=== PATIENT | female | born 1995 | race Caucasian/White ===

== ENCOUNTER 2018-02-03 09:00 | Emergency (ER) | payer MEDICAID, OTHER ==
[~2018-02-03] VITALS: Ht 157.5 cm; Wt 73.5 kg
[2018-02-03] MEDS ORDERED: NS IV 1000 ML 1,000 ML IV STA (09:19)
[2018-02-03] MEDS ORDERED: fentaNYL INJECTION 100 MCG/2 ML AMP IVP STA (09:19)
[2018-02-03] MEDS ORDERED: FAMOTIDINE 20MG/2ML IV (PEPCID) IV STA (09:19)
[2018-02-03 09:26] LABS: BASOPHILS % (AUTO) 0 % (0-10); EOSINOPHILS # (AUTO) 0.1 10^3/uL (0.0-0.3); EOSINOPHILS % (AUTO) 1 % (0-10); HEMATOCRIT 38 % (35-52); HEMOGLOBIN 13.1 G/DL (11.5-16.0); LYMPHOCYTES # (AUTO) 1.8 X 10^3 (1.0-4.0); LYMPHOCYTES % (AUTO) 23 % (12-44); MEAN CORPUSCULAR HEMOGLOBIN 31 PG (25-34); MEAN CORPUSCULAR HGB CONC 34 G/DL (32-36); MEAN CORPUSCULAR VOLUME 89 FL (80-99); MEAN PLATELET VOLUME 11.6 FL (7.4-10.4); MONOCYTES # (AUTO) 0.6 X 10^3 (0.0-1.0); MONOCYTES % (AUTO) 8 % (0-12); NEUTROPHILS # (AUTO) 5.2 X 10^3 (1.8-7.8); NEUTROPHILS % (AUTO) 68 % (42-75); PLATELET COUNT 254 10^3/uL (130-400); RED BLOOD COUNT 4.29 10^6/uL (4.35-5.85); RED CELL DISTRIBUTION WIDTH 13.4 % (10.0-14.5); WHITE BLOOD COUNT 7.6 10^3/uL (4.3-11.0)
[2018-02-03] MEDS ORDERED: ONDANSETRON 4 MG/2 ML (SDV) Z0FRAN IVP ONE (09:30)
[2018-02-03] MEDS ORDERED: NORG1TAB15 (09:33)
[2018-02-03 09:46] LABS: ALANINE AMINOTRANSFERASE 26 U/L (0-55); ALBUMIN 4.3 GM/DL (3.2-4.5); ALKALINE PHOSPHATASE 90 U/L (40-136); BILIRUBIN,TOTAL 0.4 MG/DL (0.1-1.0); BUN/CREATININE RATIO 15; CARBON DIOXIDE 15 MMOL/L (21-32); CHLORIDE 110 MMOL/L (98-107); CREATININE SERUM 0.73 MG/DL (0.60-1.30); GFR ESTIMATED > 60; GLUCOSE 93 MG/DL (70-105); LIPASE 17 U/L (8-78); POTASSIUM 4.5 MMOL/L (3.6-5.0); SODIUM 140 MMOL/L (135-145); TOTAL PROTEIN 7.8 GM/DL (6.4-8.2)
--- NOTE | 2018-02-03 10:11 | ED Abdominal Pain ---
General Chief Complaint: Abdominal/GI Problems Stated Complaint: ABD PAIN Nursing Triage Note: pt present to ed with complaints of abdominal pain x several months. Durring with her now 3 month old son pt was told she had a sluggish gallbladder. pt reports the pain got significantly worse today. pt reports nausea but no vomiting and medial abdominal/epigastric pain that raps around both side and to her back. Sepsis Screen: No Definite Risk Source of Information: Patient Exam Limitations: No Limitations History of Present Illness Date Seen by Provider: Feb 03, 2018 Time Seen by Provider: 09:12 Initial Comments Here with report of central and right upper quadrant abdominal pain that radiates to her back. She gets pain there frequently and was told that she had a poorly functioning gallbladder. She had onset of symptoms during . Her son is now 3 months old. She has not had further workup as of yet. Usually she can get the pain to go away by taking a hot shower. That did not work this morning. Denies vomiting but does have nausea. She did take ibuprofen 800 mg at 7 a.m. and that did not help. Onset of pain at 4 a.m. and took a shower at 5 a.m. and pain medicine at 7 a.m. She is not currently breast -feeding. Timing/Duration: Intermittent, Other (9 or 10 months) Severity/Quality: Moderate Location: RUQ, Epigastric Radiation: Back Modifying Factors: Improves With Analgesics, Improves With Resting Associated Symptoms: No Back Pain, No Chest Pain, No Fever/Chills; Nausea/ Vomiting; No Shortness of Air, No Weakness Allergies and Home Medications Allergies Coded Allergies: No Known Drug Allergies (Unverified , 02/03/18) Patient Home Medication List Home Medication List Reviewed: Yes Review of Systems Review of Systems Constitutional: see HPI; No chills, No fever EENTM: No Symptoms Reported Respiratory: Denies Cough, Denies Shortness of Air, Denies SOA at Rest Cardiovascular: Denies Chest Pain, Denies Edema Gastrointestinal: Abdominal Pain; Denies Diarrhea; Nausea; Denies Vomiting Genitourinary: No Symptoms Reported Musculoskeletal: no symptoms reported Skin: no symptoms reported All Other Systems Reviewed Negative Unless Noted: Yes Past Ntmlbeb-Dgfpzn-Irlvaq Hx Past Med/Social Hx: Reviewed Nursing Past Med/Soc Hx Patient Social History Alcohol Use: Denies Use Recreational Drug Use: No Smoking Status: Never a Smoker Recent Foreign Travel: No Contact w/Someone Who Travel: No Recent Infectious Disease Expo: No Recent Hopitalizations: No Physical Abuse: No Sexual Abuse: No Mistreated: No Fear: No Seasonal Allergies Seasonal Allergies: No Past Medical History Surgeries: Yes (breast biopsy) Respiratory: No Cardiac: No Neurological: No Hx : 1 Hx Para: 1 Genitourinary: No Gastrointestinal: Yes Gall Bladder Disease Musculoskeletal: No Endocrine: No HEENT: No Cancer: No Psychosocial: No Blood Disorders: No Family Medical History Reviewed Nursing Family Hx No Pertinent Family Hx Physical Exam Vital Signs Vital Signs - First Documented 02/03/18 09:21 Temp 97.4 Pulse 74 Resp 18 B/P (MAP) 158/100 (119) Pulse Ox 100 Capillary Refill : Less Than 3 Seconds Height/Weight/BMI Height: 5'2.00" Weight: 162lbs. oz. [id number]; BMI Method:Stated General Appearance: WD/WN, no apparent distress HEENT: PERRL/EOMI, pharynx normal Neck: full range of motion, supple Respiratory: lungs clear, normal breath sounds Cardiovascular: regular rate, rhythm, no murmur Gastrointestinal: normal bowel sounds, soft; No guarding, No rebound; tenderness (of epigastric and right upper quadrant) Extremities: non-tender, normal inspection Back: normal inspection, no CVA tenderness, no vertebral tenderness Neurologic/Psychiatric: alert, oriented x 3 Skin: normal color, warm/dry Progress/Results/Core Measures Results/Orders Lab Results Laboratory Tests Test 02/03/18 09:18 Range/Units White Blood Count 7.6 4.3-11.0 10^3/uL Red Blood Count 4.29 L 4.35-5.85 10^6/uL Hemoglobin 13.1 11.5-16.0 G/DL Hematocrit 38 35-52 % Mean Corpuscular Volume 89 80-99 FL Mean Corpuscular Hemoglobin 31 25-34 PG Mean Corpuscular Hemoglobin Concent 34 32-36 G/DL Red Cell Distribution Width 13.4 10.0-14.5 % Platelet Count 254 130-400 10^3/uL Mean Platelet Volume 11.6 H 7.4-10.4 FL Neutrophils (%) (Auto) 68 42-75 % Lymphocytes (%) (Auto) 23 12-44 % Monocytes (%) (Auto) 8 0-12 % Eosinophils (%) (Auto) 1 0-10 % Basophils (%) (Auto) 0 0-10 % Neutrophils # (Auto) 5.2 1.8-7.8 X 10^3 Lymphocytes # (Auto) 1.8 1.0-4.0 X 10^3 Monocytes # (Auto) 0.6 0.0-1.0 X 10^3 Eosinophils # (Auto) 0.1 0.0-0.3 10^3/uL Basophils # (Auto) 0.0 0.0-0.1 10^3/uL Sodium Level 140 135-145 MMOL/L Potassium Level 4.5 3.6-5.0 MMOL/L Chloride Level 110 H 98-107 MMOL/L Carbon Dioxide Level 15 L 21-32 MMOL/L Anion Gap 15 H 5-14 MMOL/L Blood Urea Nitrogen 11 7-18 MG/DL Creatinine 0.73 0.60-1.30 MG/DL Estimat Glomerular Filtration Rate > 60 BUN/Creatinine Ratio 15 Glucose Level 93 70-105 MG/DL Calcium Level 9.0 8.5-10.1 MG/DL Corrected Calcium 8.8 8.5-10.1 MG/DL Total Bilirubin 0.4 0.1-1.0 MG/DL Aspartate Amino Transf (AST/SGOT) 29 5-34 U/L Alanine Aminotransferase (ALT/SGPT) 26 0-55 U/L Alkaline Phosphatase 90 40-136 U/L Total Protein 7.8 6.4-8.2 GM/DL Albumin 4.3 3.2-4.5 GM/DL Lipase 17 8-78 U/L Serum Test, Qualitative NEGATIVE NEGATIVE My Orders Orders - GATO OAKES MD Cbc With Automated Diff (02/03/18 09:19) Comprehensive Metabolic Panel (02/03/18 09:19) Lipase (02/03/18 09:19) Ondansetron Injection (Zofran Injectio (02/03/18 09:30) Ns Iv 1000 Ml (Sodium Chloride 0.9%) (02/03/18 09:19) Famotidine Injection (Pepcid Injection) (02/03/18 09:19) Saline Lock/Iv-Start (02/03/18 09:19) Fentanyl Injection (Sublimaze Injection (02/03/18 09:19) Hcg,Qualitative Serum (02/03/18 09:20) Medications Given in ED Current Medications Medications Dose Ordered Sig/Breanna Route Start Time Stop Time Status Last Admin Dose Admin Ondansetron HCl 4 mg ONCE ONCE IVP 02/03/18 09:30 02/03/18 09:31 DC 02/03/18 09:37 4 MG Vital Signs/I&O 02/03/18 09:21 Temp 97.4 Pulse 74 Resp 18 B/P (MAP) 158/100 (119) Pulse Ox 100 Blood Pressure Mean: 119 Progress Progress Note : Progress Note Seen and evaluated. IV, labs, normal saline 1 L bolus, Zofran 4 mg IV, Pepcid 20 mg IV and fentanyl 50 g IV. Monitor patient. 1005: No acute findings on laboratory data. I will discuss with surgeon about outpatient follow-up and continuation of evaluation. Discharged home with return precautions. Patient verbalize understanding instructions and agreement with plan. Departure Impression Primary Impression: Right upper quadrant abdominal pain Disposition: HOME, SELF-CARE Condition: Stable Departure-Patient Inst. Decision time for Depature: 10:11 Referrals: SRIDEVI BOSWELL,LOCAL PHYSICIAN (PCP) Primary Care Physician Patient Instructions: Acute Abdomen (Belly Pain), Adult (DC), POSS GALLSTONE-W/ BILIARY COLIC Add. Discharge Instructions: All discharge instructions reviewed with patient and/or family. Voiced understanding. Avoid fats in your diet. Drink plenty of fluids. Follow-up with Dr. Boswell for recheck and further evaluation. Call his office at 8 a.m. on Sunday for appointment that day. Return for worse pain, fever, vomiting, weakness, breathing problems or other concerns as needed. You may take ibuprofen 800 mg every 8 hours as needed for pain. You may take Tylenol/acetaminophen 1000 mg every 8 hours as needed for pain. Copy Copies To 1: SRIDEVI BOSWELL TIMOTHY D MD Feb 03, 2018 10:11
[2018-02-03 10:29] VITALS: BP 126/85
[2018-02-07] MEDS ORDERED: ACHD5005 PO (10:52)
== END 2018-02-03 10:29 | disposition home or self-care (01) ==
LOC: ER 09:03
DX: R10.11 Right upper quadrant pain (principal)
CPT/HCPCS: 36415; 80053; 83690; 84703; 85025

== ENCOUNTER 2018-02-06 13:40 | Outpatient (CLI) | payer MEDICAID ==
[~2018-02-06] VITALS: Ht 157.5 cm; Wt 73.5 kg
[~2018-02-06 13:40] MED LIST: NORG1TAB15
[2018-02-07] MEDS ORDERED: ACHD5005 PO (10:52)
== END 2018-02-06 15:08 | disposition home or self-care (01) ==
LOC: PREOP 13:40
PROVIDERS: ATTEND Surgery
DX: Z01.818 Encounter for other preprocedural examination (principal)

== ENCOUNTER 2018-02-07 08:15 | Day surgery (SDC) | payer MEDICAID ==
[~2018-02-07] VITALS: Ht 157.5 cm; Wt 73.5 kg
[2018-02-07] MEDS ORDERED: fentaNYL INJECTION 100 MCG/2 ML AMP ONE (08:33)
[2018-02-07] MEDS ORDERED: MIDAZOLAM 2 MG/2 ML (VERSED) VIAL ONE (08:34)
[2018-02-07 08:45] VITALS: BP 146/92
[2018-02-07] MEDS ORDERED: ceFAZolin 2 GM IV Premixed 50 ML ONE (08:48)
[2018-02-07] MEDS ORDERED: ceFAZolin 2 GM IV Premixed 50 ML IV ONE (09:00)
[2018-02-07] MEDS: LACTATED RINGERS 1,000 ML IV PRN ×2 (09:04→10:30)
[2018-02-07] MEDS ORDERED: CATHETER FLUSH 10 ML SYR IV PRN (09:30)
[2018-02-07] MEDS ORDERED: LIDOCAINE/EPI 1%-1:100,000 (XYLOCAINE) 20ML ONE (09:34)
[2018-02-07] MEDS ORDERED: LIDOCAINE PF 2% 5 ML (XYLOCAINE) VIAL ONE (10:27)
[2018-02-07] MEDS ORDERED: proPOfol 200 MG/20 ML (DIPRIVAN) VIAL IV ONE (10:27)
[2018-02-07] MEDS ORDERED: DEXAMETHASONE 10 MG/ML (DECADRON) 1 ML VIAL ONE (10:27)
[2018-02-07] MEDS ORDERED: SEVOFLURANE (ULTANE) 15 ML INHAL SOLN ONE ×3 (10:27→10:50)
[2018-02-07] MEDS ORDERED: ONDANSETRON 4 MG/2 ML (SDV) Z0FRAN ONE (10:27)
[2018-02-07] MEDS ORDERED: ROCURONIUM 10 MG/ML 5 ML SYRINGE IV ONE (10:41)
[2018-02-07] MEDS ORDERED: KETOROLAC 30 MG/ML VIAL ONE (10:42)
[2018-02-07] MEDS ORDERED: NEOSTIGMINE 1 MG/ML 5 ML SYRINGE ONE (10:49)
[2018-02-07] MEDS ORDERED: GLYCOPYRROLATE 0.2 MG/ML (ROBINUL) 2 ML VIAL ONE (10:49)
--- NOTE | 2018-02-07 10:51 | Progress Note-Post Operative ---
Post-Operative Progess Note Surgeon (s)/Marketing Secretary (s) Surgeon SRIDEVI PHAM DO Marketing Secretary: none Pre-Operative Diagnosis Chronic Cholecystitis/Cholelithiasis Post-Operative Diagnosis Same Procedure & Operative Findings Date of Procedure 02/07/18 Procedure Performed/Findings Lap Norah with IOC Anesthesia Type GET Estimated Blood Loss Estimated blood loss (mL): less than 5ml Specimens/Packing Specimens Removed GB and contents SRIDEVI PHAM DO Feb 07, 2018 10:51
[2018-02-07] MEDS ORDERED: ACHD5005 PO (10:52)
--- NOTE | 2018-02-07 10:54 | Discharge Inst-Surgical ---
Discharge Inst-Surgical Depart Medication/Instructions New, Converted or Re-Newed RX: RX Given to Pt/Family Patient Instructions Follow up Appt: Make appointment for 1 week. Instructions: No lifting greater than 10 pounds. No strenuous activity. May shower in 24 hours, no tub bath or soaking. Use incentive spirometer at home as directed. No Smoking Skin/Wound Care: May remove bandages in am. You need to leave the Dermabond on over incision it will fall off on its own. Symptoms to Report: Appetite Changes, Extremity Discoloration, Numbness/Tingling, Swelling Increased , Bleeding Excessive, Eyesight Changes, Pain Increased, Urine Color Change, Constipation(Persistent), Fever over 101 degree F, Pain/Pressure in chest, Urinating Difficulty, Cough Up/Vomit Blood, Heart Beat Irreg/Pounding, Pain/ Pressure in jaw, Vaginal Bleeding Increase, Cramps in feet or legs, Lightheadedness, Pain/Pressure in shoulder, Diarrhea(Persistent), Memory Changes Suddenly, Questions/Concerns, Weight gain consecutive days, Dizziness/ Fainting, Nausea/Vomiting, Shortness of Breath, Weight gain over 2 pounds If questions or concerns contact your physician Or seek help at emergency department. Activity Activity Instructions: Avoid Stress to Incision Driving Instructions: No Driving/Refer to Diet Discharge Diet: Avoid Fatty Foods, Low Fat/Low Cholesterol Diet After 24 Hours: Clear Liquid if Nauseous If Any Problems/Questions/Issu: Contact Your Physician Skin/Wound Care Infection Signs and Symptoms: Increased Redness, Foul Odor of Wound, Increased Drainage, Skin Itchy or Has a Rash, Increased Swelling, Temperature Above 101 F Wound Care Comment: heating pad to shoulder and neck tonight for pain Bathing Instructions: Shower Stitches/Mirna/Dermabond Dis: Dermabond Ice Pack: Ice On and Off Site (incisions as needed for pain) SRIDEVI PHAM DO Feb 07, 2018 10:53
[2018-02-07] MEDS ORDERED: morphine INJ 10 MG/ML 1ML (SYR OR VIAL) ONE (11:06)
[2018-02-07] MEDS ORDERED: PROMETHAZINE INJ 25 MG/ML (PHENERGAN) AMP ONE (11:07)
[2018-02-07] MEDS ORDERED: ONDANSETRON 4 MG/2 ML (SDV) Z0FRAN IVP PRN (11:15)
[2018-02-07] MEDS ORDERED: morphine INJ 10 MG/ML 1ML (SYR OR VIAL) IVP ONE (11:15)
[2018-02-07] MEDS ORDERED: PROMETHAZINE INJ 25 MG/ML (PHENERGAN) AMP IVP ONE (11:45)
[2018-02-07 12:05] VITALS: BP 148/102
[2018-02-07] MEDS ORDERED: HYDROcodone/APAP 5 MG/325 MG (LORTAB) TAB ONE (12:10)
[2018-02-07] MEDS ORDERED: HYDROcodone/APAP 5 MG/325 MG (LORTAB) TAB PO ONE (12:30)
[2018-02-07 12:35] VITALS: BP 139/97
[2018-02-07 13:05] VITALS: BP 140/87
--- NOTE | 2018-02-07 14:38 | Anesthesia-General Post-Op ---
General Patient Condition Mental Status/LOC: Same as Preop Cardiovascular: Satisfactory Nausea/Vomiting: Absent Respiratory: Satisfactory Pain: Controlled Complications: Absent Post Op Complications Complications None Follow Up Care/Instructions Patient Instructions None needed. Anesthesia/Patient Condition Patient Condition Patient is doing well, no complaints, stable vital signs, no apparent adverse anesthesia problems. No complications reported per nursing. EMMA MANRIQUE CRNA Feb 07, 2018 14:38
--- NOTE | 2018-02-07 17:09 | Diagnostic Imaging Report ---
INDICATION: Fluoroscopy during intraoperative cholangiogram. FINDINGS: Fluoroscopy was provided in the OR during intraoperative cholangiogram. 9 seconds of fluoroscopy was utilized. Images demonstrate contrast being injected via the cystic duct remnant. Intrahepatic and extrahepatic bile ducts are normal caliber. No filling defects are seen. There is normal flow of contrast into the duodenum. IMPRESSION: Fluoroscopy during intraoperative cholangiogram. Dictated by: Dictated on workstation # [id number]
--- NOTE | 2018-02-08 23:20 | OPERATIVE REPORT ---
DATE OF SERVICE: 02/07/2018 PREOPERATIVE DIAGNOSES: Cholelithiasis, cholecystitis. POSTOPERATIVE DIAGNOSES: Cholelithiasis, cholecystitis. PROCEDURE: Laparoscopic cholecystectomy, intraoperative cholangiogram. SURGEON: Reuben Boswell DO MILK DRIER: None. ANESTHESIA: General endotracheal tube. SPECIMEN: Gallbladder and contents. BLOOD LOSS: Scant. FLUIDS: Per anesthesia. POSTOPERATIVE CONDITION: Stable. INDICATION FOR PROCEDURE: The patient is a 22-year-old female who has been having right upper quadrant pain, had an ultrasound done while she was , which showed sludge in her gallbladder. FINDINGS: The patient had adhesions of the gallbladder. It is usually indicative of previous gallbladder attacks and she also appeared to have some fluid around the gallbladder. PROCEDURE NOTE: After informed consent was obtained, the patient was brought to the operating room, placed on the operating table in supine position. She was sterilely prepped and draped in normal fashion. Local lidocaine was used to infiltrate the skin above the umbilicus. Made incision with #11 blade, carried down through the skin into the subcutaneous tissue, then deepened down through subcutaneous tissue with Bovie electrocautery down the fascia. Fascia incised with Bovie electrocautery. Bluntly entered the abdomen, swept the finger around, placed 0 Vicryl [id number] suture, then placed 11 mm trocar port under direct visualization. Created pneumoperitoneum and then placed 3 more ports in normal fashion using local lidocaine, 11 blade for stab incision and the VersaStep system, all done under direct visualization, one subxiphoid and 2 in the right upper quadrant. The patient was then placed slightly in reverse Trendelenburg and rotated left, able to visualize the gallbladder and grasped at the fundus. There were adhesions of the gallbladder. Pictures of this were taken. There was omentum and duodenum attached stuck up there. This is usually indicative of previous gallbladder attacks. Grasping the gallbladder at the fundus, taken in the superior direction and carefully taken down the adhesions with blunt dissection as well as Bovie electrocautery pushing the omentum out of the way as well as pushing the duodenum gently out of the way, then able to grasp down the Deja's pouch and pulled in inferolateral direction and start dissecting out the cystic duct and cystic artery. Able to get around the cystic duct and the cystic artery, placed 1 clip distally on the cystic duct and one distally and 1 proximal and cystic artery. Cut the cystic duct long-term through Metzenbaum scissors. Placed a cholangiogram catheter and shot a cholangiogram. Good spillage of dye down the cystic duct into the common bile duct and down in the small intestine as well as up into common hepatic and right and left hepatics. Removed the cholangiogram catheter, placed 2 clips proximally on the cystic duct and cut the cystic duct and cystic artery with Metzenbaum scissors. Started taking the gallbladder from the bed of the liver. There was a posterior artery encountered, clipped twice proximally and once distally and cut with Metzenbaum scissors and then continued to take the gallbladder from the bed of liver with L-hook cautery. Once it was completely removed, placed a bag in the abdomen, placed the gallbladder in the bag and then removed this through a supraumbilical incision. Placed the port back into the abdomen, copiously irrigated with normal saline. Took picture of the bed of liver. There was no bleeding and then at this point, placed the patient supine, removed all ports under direct visualization, allowed pneumoperitoneum to escape as well as suctioned out. Closed the supraumbilical incision with 0 Vicryl suture previously placed. Copiously irrigated all incisions with normal saline. I then closed the 3 small 5 mm incision with a single interrupted 4-0 undyed Monocryl subcuticular stitch and closed the supraumbilical incision with 3 interrupted 4-0 undyed Monocryl subcuticular stitches. Area was cleaned and dried and Dermabond was placed as well as bandage. The patient then transferred to recovery room in stable condition. Sponge, instrument and needle count correct at the end of the case. Job ID: [id number] DocumentID: [id number] Dictated Date: 02/08/2018 11:42:54 Heavy Equipment Technician Date: 02/08/2018 23:20:06 Dictated By: REUBEN BOSWELL DO
== END 2018-02-07 13:05 | disposition home or self-care (01) ==
LOC: SDC 08:15
PROVIDERS: ATTEND Surgery
DX: K80.10 Calculus of gallbladder with chronic cholecystitis without obstruction (principal); K21.9 Gastro-esophageal reflux disease without esophagitis
CPT/HCPCS: 84703; 87081; 94664

== ENCOUNTER 2018-02-09 16:30 | Emergency (ER) | payer MEDICAID ==
[~2018-02-09] VITALS: Ht 157.5 cm; Wt 72.6 kg
[~2018-02-09 16:30] MED LIST changes: +ACHD5005 PO
[2018-02-09] MEDS ORDERED: KETOROLAC 30 MG/ML VIAL IVP ONE (16:45)
--- NOTE | 2018-02-09 16:55 | ED Abdominal Pain ---
General Chief Complaint: Abdominal/GI Problems Stated Complaint: POST GALL BLADDER SURGERY PAIN Nursing Triage Note: ARRIVED VIA AMB TO ROOM 08. COMPLAINS OF INCREASED PAIN AFTER GALLBLADDER SURGERY 2 DAYS AGO. PT TOOK A HYDROCODONE AT 1400 Sepsis Screen: No Definite Risk Source of Information: Patient Exam Limitations: No Limitations History of Present Illness Date Seen by Provider: Feb 09, 2018 Time Seen by Provider: 16:53 Initial Comments Warner Sebastian's roommate by private vehicle with reports of midline epigastric abdominal pain and upper back pain. She had a laparoscopic cholecystectomy done 48 hours ago here by Dr. Javier. She took a hydrocodone 2 hours ago and her pain is improved at this time currently rated a 4 out of 10. No fevers or chills. Timing/Duration: 1-3 Hours, 1-2 Days Severity/Quality: Moderate Radiation: No Radiation Activities at Onset: Activity Allergies and Home Medications Allergies Coded Allergies: fentanyl (Unverified Allergy, Intermediate, PROFUSE VOMITING, 02/07/18) Home Medications Hydrocodone Bit/Acetaminophen 1 Tab Tab, 1 TAB PO Q6H PRN for PAIN-MODERATE Prescribed by: SRIDEVI PHAM on 02/07/18 1052 Patient Home Medication List Home Medication List Reviewed: Yes Review of Systems Review of Systems Constitutional: see HPI EENTM: No Symptoms Reported Respiratory: No Symptoms Reported Cardiovascular: No Symptoms Reported Gastrointestinal: See HPI, Abdominal Pain; Denies Constipated, Denies Diarrhea , Denies Nausea Genitourinary: No Symptoms Reported Musculoskeletal: no symptoms reported Skin: no symptoms reported Psychiatric/Neurological: No Symptoms Reported Endocrine: No Symptoms Reported Hematologic/Lymphatic: No Symptoms Reported Past Osivqrn-Enbsiu-Ytcllg Hx Patient Social History Recent Foreign Travel: No Contact w/Someone Who Travel: No Recent Infectious Disease Expo: No Recent Hopitalizations: No Immunizations Up To Date Date of Influenza Vaccine: Nov 19, 2017 Seasonal Allergies Seasonal Allergies: No Past Medical History Surgeries: Yes (breast biopsy) Gallbladder Respiratory: No Cardiac: No Neurological: Yes Headaches /Migraines Reproductive Disorders: No Sexually Transmitted Disease: No HIV/AIDS: No Genitourinary: No Gastrointestinal: Yes Gastroesophageal Reflux, Gall Bladder Disease Musculoskeletal: No Endocrine: No HEENT: No Loss of Vision: Denies Hearing Impairment: Denies Cancer: No Psychosocial: No Integumentary: No Blood Disorders: No Adverse Reaction/Blood Tranf: No (N/A) Family Medical History No Pertinent Family Hx Physical Exam Vital Signs Vital Signs - First Documented 02/09/18 16:34 Temp 99.0 Pulse 95 Resp 16 Pulse Ox 98 O2 Delivery Room Air Capillary Refill : Less Than 3 Seconds Height/Weight/BMI Height: 5'2.00" Weight: 160lbs. 0.0oz. 72.875747ma; 29.6 BMI Method:Stated General Appearance: WD/WN, no apparent distress HEENT: PERRL/EOMI, normal ENT inspection Neck: non-tender, full range of motion Respiratory: no respiratory distress, no accessory muscle use Gastrointestinal: normal bowel sounds, soft, tenderness Extremities: normal range of motion, non-tender Neurologic/Psychiatric: alert, normal mood/affect, oriented x 3 Skin: normal color Progress/Results/Core Measures Results/Orders My Orders Orders - LYNNE BONILLA APRN Cbc With Automated Diff (02/09/18 16:36) Comprehensive Metabolic Panel (02/09/18 16:36) Lipase (02/09/18 16:36) Iv Heplock-Insert (Order) (02/09/18 16:36) Ketorolac Injection (Toradol Injection) (02/09/18 16:45) Ua Culture If Indicated (02/09/18 16:42) Vital Signs/I&O 02/09/18 16:34 Temp 99.0 Pulse 95 Resp 16 B/P (MAP) Pulse Ox 98 O2 Delivery Room Air Departure Impression Primary Impression: Postoperative abdominal pain Disposition: 01 HOME, SELF-CARE Condition: Stable Departure-Patient Inst. Decision time for Depature: 17:05 Referrals: NO,LOCAL PHYSICIAN (PCP/Family) Primary Care Physician Patient Instructions: Postoperative Pain (DC) Add. Discharge Instructions: All discharge instructions reviewed with patient and/or family. Voiced understanding. LYNNE BONILLA APRN Feb 09, 2018 16:55
[2018-02-09 17:26] LABS: BASOPHILS % (AUTO) 0 % (0-10); EOSINOPHILS # (AUTO) 0.1 10^3/uL (0.0-0.3); EOSINOPHILS % (AUTO) 2 % (0-10); HEMATOCRIT 40 % (35-52); HEMOGLOBIN 13.4 G/DL (11.5-16.0); LYMPHOCYTES # (AUTO) 1.4 X 10^3 (1.0-4.0); LYMPHOCYTES % (AUTO) 26 % (12-44); MEAN CORPUSCULAR HEMOGLOBIN 30 PG (25-34); MEAN CORPUSCULAR HGB CONC 34 G/DL (32-36); MEAN CORPUSCULAR VOLUME 90 FL (80-99); MEAN PLATELET VOLUME 11.6 FL (7.4-10.4); MONOCYTES # (AUTO) 0.5 X 10^3 (0.0-1.0); MONOCYTES % (AUTO) 10 % (0-12); NEUTROPHILS # (AUTO) 3.5 X 10^3 (1.8-7.8); NEUTROPHILS % (AUTO) 63 % (42-75); PLATELET COUNT 228 10^3/uL (130-400); RED BLOOD COUNT 4.43 10^6/uL (4.35-5.85); RED CELL DISTRIBUTION WIDTH 13.2 % (10.0-14.5); WHITE BLOOD COUNT 5.5 10^3/uL (4.3-11.0)
[2018-02-09 17:46] LABS: ALANINE AMINOTRANSFERASE 101 U/L (0-55); ALKALINE PHOSPHATASE 125 U/L (40-136); BILIRUBIN,TOTAL 0.4 MG/DL (0.1-1.0); BUN/CREATININE RATIO 11; CALCIUM 9.3 MG/DL (8.5-10.1); CARBON DIOXIDE 22 MMOL/L (21-32); CHLORIDE 107 MMOL/L (98-107); CREATININE SERUM 0.66 MG/DL (0.60-1.30); GFR ESTIMATED > 60; GLUCOSE 83 MG/DL (70-105); LIPASE 20 U/L (8-78); POTASSIUM 3.5 MMOL/L (3.6-5.0); SODIUM 141 MMOL/L (135-145); TOTAL PROTEIN 7.2 GM/DL (6.4-8.2)
[2018-02-09 18:22] LABS: BILIRUBIN,URINE NEGATIVE (NEGATIVE); CLARITY,URINE SLIGHTLY CLOUDY; COLOR,URINE YELLOW; GLUCOSE, URINE (UA) NEGATIVE (NEGATIVE); KETONES,URINE NEGATIVE (NEGATIVE); LEUKOCYTE ESTERASE ,URINE 1+ (NEGATIVE); NITRITE,URINE NEGATIVE (NEGATIVE); PH,URINE 6.5 (5-9); PROTEIN,URINE 1+ (NEGATIVE); UROBILINOGEN,URINE 1 MG/DL (NORMAL)
[2018-02-09 18:29] LABS: BACTERIA,URINE TRACE /HPF; RBC,URINE >100 /HPF
[2018-02-09 18:49] VITALS: BP 138/85
== END 2018-02-09 18:49 | disposition home or self-care (01) ==
LOC: EDUNIT# 16:30 → ER 16:31
DX: G89.18 Other acute postprocedural pain (principal); R10.13 Epigastric pain; G43.909 Migraine, unspecified, not intractable, without status migrainosus; K21.9 Gastro-esophageal reflux disease without esophagitis; Z87.448 Personal history of other diseases of urinary system; Z88.8 Allergy status to other drugs, medicaments and biological substances; Z90.49 Acquired absence of other specified parts of digestive tract; Z98.890 Other specified postprocedural states
CPT/HCPCS: 36415; 80053; 81000; 83690; 85025

== ENCOUNTER 2018-04-19 21:23 | Emergency (ER) | payer MEDICAID ==
[~2018-04-19] VITALS: Ht 157.5 cm; Wt 69.4 kg
[2018-04-19] MEDS ORDERED: morphine INJ 10 MG/ML 1ML (SYR OR VIAL) ONE (21:43)
[2018-04-19] MEDS ORDERED: morphine INJ 10 MG/ML 1ML (SYR OR VIAL) IVP STA ×2 (21:47→21:54)
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
[2018-04-19] MEDS ORDERED: OXYC1TAB87 PO (22:07)
[2018-04-19] MEDS ORDERED: RX-OXYCODONE/APAP 5-325 MG #4 TAB PK PO PRN (22:15)
--- NOTE | 2018-04-19 22:35 | NUR ---
Triple antibiotic was applied to the unger, non stick dressing applied to her fingers and gauze was applied to hold the non-stick dressings on her fingers. Pt. was given a prescription to be filled and the take home Rx of Percocet to take home.
[2018-04-19 22:41] VITALS: BP 140/70
== END 2018-04-19 22:41 | disposition home or self-care (01) ==
LOC: EDUNIT# 21:23 → ER FS 21:24
DX: T23.261A Burn of second degree of back of right hand, initial encounter (principal); T21.22XA Burn of second degree of abdominal wall, initial encounter; T31.0 Burns involving less than 10% of body surface; G43.909 Migraine, unspecified, not intractable, without status migrainosus; K21.9 Gastro-esophageal reflux disease without esophagitis; Z87.19 Personal history of other diseases of the digestive system; Z98.890 Other specified postprocedural states; X10.2XXA Contact with fats and cooking oils, initial encounter
CPT/HCPCS: 99284

== ENCOUNTER 2019-03-08 22:59 | Emergency (ER) | payer SELFPAY ==
[~2019-03-08] VITALS: Ht 157.5 cm; Wt 84.5 kg
[~2019-03-08 22:59] MED LIST changes: +OXYC1TAB87 PO
--- NOTE | 2019-03-08 23:13 | ED EENT ---
History of Present Illness General Chief Complaint: Oral/Throat Problems Stated Complaint: SORE THROAT Source: patient Exam Limitations: no limitations History of Present Illness Date Seen by Provider: Mar 08, 2019 Time Seen by Provider: 23:13 Initial Comments 23-year-old female presents with sore throat. His been on and off for last couple days but then became more persistent today. She reports that she has a child with also noted illness. She denies any cough, no fevers, nausea or vomiting. She reports is worse on the right side than the left. But she does not have any swollen lymph nodes. Allergies and Home Medications Allergies Coded Allergies: fentanyl (Unverified Allergy, Intermediate, PROFUSE VOMITING, 04/19/18) Home Medications Hydrocodone Bit/Acetaminophen 1 Tab Tab, 1 TAB PO Q6H PRN for PAIN-MODERATE Prescribed by: SRIDEVI PHAM on 02/07/18 1052 Oxycodone HCl/Acetaminophen 1 Each Tablet, 1-2 TAB PO Q6H PRN for PAIN-MODERATE TO SEVERE Prescribed by: JESSICA WALLACE on 04/19/181 Patient Home Medication List Home Medication List Reviewed: Yes Review of Systems Review of Systems Constitutional: No chills, No fever Ears: No Symptoms Reported Nose: no symptoms reported Mouth: no symptoms reported Throat: pain Respiratory: No cough, No short of breath Cardiovascular: No chest pain Gastrointestinal: no symptoms reported Past Lgrlemn-Mubnwf-Iayyge Hx Past Med/Social Hx: Reviewed Nursing Past Med/Soc Hx Patient Social History Recent Foreign Travel: No Contact w/Someone Who Travel: No Recent Hopitalizations: No Immunizations Up To Date Date of Influenza Vaccine: Nov 19, 2017 Seasonal Allergies Seasonal Allergies: No Past Medical History Surgeries: Yes (breast biopsy) Gallbladder Respiratory: No Cardiac: No Neurological: Yes Headaches /Migraines Reproductive Disorders: No Sexually Transmitted Disease: No HIV/AIDS: No Genitourinary: No Gastrointestinal: Yes Gastroesophageal Reflux, Gall Bladder Disease Musculoskeletal: No Endocrine: No HEENT: No Loss of Vision: Denies Hearing Impairment: Denies Cancer: No Psychosocial: No Integumentary: No Blood Disorders: No Adverse Reaction/Blood Tranf: No (N/A) Family Medical History No Pertinent Family Hx Physical Exam Vital Signs Vital Signs - First Documented 03/08/19 23:11 Temp 36.9 Pulse 106 Resp 16 B/P (MAP) 152/87 (108) Pulse Ox 99 O2 Delivery Room Air Height, Weight, BMI Height: 5'2.00" Weight: 153lbs. 0.0oz. 69.416699lm; 29.6 BMI Method:Stated General Appearance: WD/WN, no apparent distress Mouth/Throat: normal mouth inspection, pharynx normal; No pharynx swelling, No tongue swollen, No tonsillar exudate, No uvula swelling, No voice changes Neck: non-tender, supple, normal inspection; No lymphadenopathy (R), No lymphadenopathy (L) Cardiovascular: normal peripheral pulses, regular rate, rhythm Respiratory: lungs clear, normal breath sounds, no respiratory distress Gastrointestinal: soft Neurologic/Psychiatric: ophthalmic aide II-XII nml as tested, alert, normal mood/affect, oriented x 3 Skin: normal color, warm/dry Progress/Results/Core Measures Results/Orders Lab Results Laboratory Tests Test 03/08/19 23:15 Range/Units Group A Streptococcus Screen NEGATIVE NEGATIVE My Orders Orders - KRISTI MACE DO Rapid Strep A Screen (03/08/19 23:15) Vital Signs/I&O 03/08/19 23:11 Temp 36.9 Pulse 106 Resp 16 B/P (MAP) 152/87 (108) Pulse Ox 99 O2 Delivery Room Air Departure Impression Primary Impression: Viral pharyngitis Disposition: 01 HOME, SELF-CARE Condition: Stable Departure-Patient Inst. Referrals: PAMELA ZHAO MD (PCP) Primary Care Physician NO,LOCAL PHYSICIAN (Family) Primary Care Physician Patient Instructions: Viral Pharyngitis, Viral Upper Respiratory Infection, Adult (DC) KRISTI MACE DO Mar 08, 2019 23:13
[2019-03-08 23:35] VITALS: BP 152/87
== END 2019-03-08 23:35 | disposition home or self-care (01) ==
LOC: EDUNIT# 22:59 → ER FS 23:02
DX: J02.9 Acute pharyngitis, unspecified (principal); Z88.5 Allergy status to narcotic agent
CPT/HCPCS: 87430; 99284

== ENCOUNTER → 2019-04-21 | Outpatient (CLI) | payer MEDICAID ==
[2019-04-21 14:17] LABS: HEMATOCRIT 40 % (35-52); HEMOGLOBIN 13.6 G/DL (11.5-16.0); MEAN CORPUSCULAR HEMOGLOBIN 30 PG (25-34); WHITE BLOOD COUNT 10.3 10^3/uL (4.3-11.0)
[2019-04-21 14:18] LABS: BASOPHILS % (AUTO) 0 % (0-10); EOSINOPHILS # (AUTO) 0.1 10^3/uL (0.0-0.3); EOSINOPHILS % (AUTO) 1 % (0-10); LYMPHOCYTES % (AUTO) 21 % (12-44); MEAN CORPUSCULAR HGB CONC 34 G/DL (32-36); MEAN CORPUSCULAR VOLUME 90 FL (80-99); MEAN PLATELET VOLUME 11.9 FL (7.4-10.4); MONOCYTES # (AUTO) 0.4 X 10^3 (0.0-1.0); MONOCYTES % (AUTO) 4 % (0-12); NEUTROPHILS # (AUTO) 7.6 X 10^3 (1.8-7.8); NEUTROPHILS % (AUTO) 74 % (42-75); PLATELET COUNT 227 10^3/uL (130-400); RED CELL DISTRIBUTION WIDTH 12.9 % (10.0-14.5)
[2019-04-21 14:19] LABS: LYMPHOCYTES # (AUTO) 2.1 X 10^3 (1.0-4.0)
== END ==
LOC: LAB FS 13:20
PROVIDERS: ATTEND Family Medicine
DX: Z34.90 Encounter for supervision of normal pregnancy, unspecified, unspecified trimester (principal); Z3A.00 Weeks of gestation of pregnancy not specified
CPT/HCPCS: 36415; 80055; 86703; 87088

== ENCOUNTER → 2019-05-19 | Outpatient (CLI) | payer MEDICAID | LOC: LABNPT 14:59 | PROVIDERS: ATTEND Family Medicine | DX: Z01.89 Encounter for other specified special examinations (principal) | CPT/HCPCS: 87491; 87591 ==

== ENCOUNTER → 2019-06-20 | Outpatient (CLI) | payer MEDICAID | LOC: LAB FS 10:25 | PROVIDERS: ATTEND Family Medicine | DX: Z34.82 Encounter for supervision of other normal pregnancy, second trimester (principal); Z3A.00 Weeks of gestation of pregnancy not specified | CPT/HCPCS: 36415; 82105; 84702; 86336 ==

== ENCOUNTER 2019-11-14 10:22 | Inpatient (IN) | payer MEDICAID ==
[2019-11-14] VITALS (40 sets, daily range): BP systolic 112–155; BP diastolic 63–93
[~2019-11-14] VITALS: Ht 155 cm; Wt 84.4 kg
[2019-11-14] MEDS ORDERED: D5 LR IV SOLUTION 1,000 ML IV SCH (10:33)
[2019-11-14] MEDS ORDERED: OXYTOCIN PRE-MIX DRIP 500 ML IV SCH ×2 (10:39→16:14)
[2019-11-14] MEDS ORDERED: MINERAL OIL CONCENTRATE 99.9% 15 ML UDC TOP PRN (10:45)
[2019-11-14] MEDS ORDERED: OXYTOCIN PRE-MIX DRIP 500 ML IV ONE (10:47)
[2019-11-14] MEDS ORDERED: D5 LR IV SOLUTION 1,000 ML IV ONE (10:47)
[2019-11-14 11:30] LABS: BASOPHILS % (AUTO) 0 % (0-10); EOSINOPHILS % (AUTO) 0 % (0-10); HEMATOCRIT 37 % (35-52); HEMOGLOBIN 12.7 g/dL (11.5-16.0); LYMPHOCYTES # (AUTO) 1.4 10^3/uL (1.0-4.0); LYMPHOCYTES % (AUTO) 18 % (12-44); MEAN CORPUSCULAR HEMOGLOBIN 31 pg (25-34); MEAN CORPUSCULAR HGB CONC 34 g/dL (32-36); MEAN CORPUSCULAR VOLUME 90 fL (80-99); MEAN PLATELET VOLUME 13.2 fL (9.0-12.2); MONOCYTES # (AUTO) 0.4 10^3/uL (0.0-1.0); MONOCYTES % (AUTO) 6 % (0-12); NEUTROPHILS # (AUTO) 6.1 10^3/uL (1.8-7.8); NEUTROPHILS % (AUTO) 76 % (42-75); PLATELET COUNT 134 10^3/uL (130-400)
[2019-11-14] MEDS ORDERED: FLU QUADRIvalent (3YOA+) 60 mcg/0.5 ml 2020-21 (AFLURIA) IM ONE (12:30)
[2019-11-14] MEDS ORDERED: fentaNYL 2 mcg/ml BUPIVA 0.125 0 ML ONE (13:12)
[2019-11-14] MEDS ORDERED: LIDOCAINE/EPI 2% 1:200,00 (XYLOCAINE) 10 ML VIAL ONE (13:14)
--- NOTE | 2019-11-14 13:22 | History & Physical-OB ---
OB - Chief Complaint & HPI Date/Time Date of Admission: Date of Admission: Nov 14, 2019 at 10:22 Date seen by a Provider: Nov 14, 2019 Time Seen by a Provider: 13:17 Chief Complaint/History OB-Reason for Admission/Chief: advanced dilation Hx : 2 Hx Para: 1 Expected Date of Delivery: Nov 27, 2019 Gestational Age in Weeks: 38 Gestational Age in Days: 1 Indication for induction: other (advance dilation) Admission Nurse Assessment Rev: Yes Allergies and Home Medications Allergies Coded Allergies: fentanyl (Unverified Allergy, Intermediate, PROFUSE VOMITING, 04/19/18) Home Medications Hydrocodone Bit/Acetaminophen 1 Tab Tab, 1 TAB PO Q6H PRN for PAIN-MODERATE Prescribed by: SRIDEVI PHAM on 02/07/18 1052 Oxycodone HCl/Acetaminophen 1 Each Tablet, 1-2 TAB PO Q6H PRN for PAIN-MODERATE TO SEVERE Prescribed by: JESSICA WALLACE on 04/19/182206 Patient Home Medication List Home Medication List Reviewed: Yes OB - History Hx of Present Care: Yes Ultrasounds: Normal mid trimester US Obstetrical Complications: None Medical Complications: None Delivery History Hx Blood Disorders: No Adverse Rxn to Tranfusion: No (N/A) Patient Past Medical History previously healthy Social History/Family History HIV/AIDS: No Sexually Transmitted Disease: No Alcohol Use: Denies Use Recreational Drug Use: No Immunizations Hepatitis B: Yes Date of Influenza Vaccine: Nov 19, 2017 OB - Admission Exam Physical Exam Vitals: Vital Signs 11/14/19 11/14/19 12:23 12:53 Temp 36.9 Pulse 79 Resp 18 B/P (MAP) 116/83 (94) Pulse Ox 100 O2 Delivery Room Air HEENT: NCAT Heart: Rhythm Normal Lungs: Clear Abdomen: Gravid Extremities: Normal Reflexes: Normal Cervical Dilatation: 5cm Effacement: 75% Station: -1 Membranes: Ruptured Amniotic Fluid: Clear Heart Rate: 130's Accelerations: Accelerations Present Decelerations: No Decelerations Short Term Variability: Present Manager Storage Variability: Average (6-25) Contractions on Admission: < 5 Minutes Apart Intensity: Mild Labs Laboratory Tests Test 11/14/19 10:55 Range/Units White Blood Count 8.0 4.3-11.0 10^3/uL Red Blood Count 4.12 3.80-5.11 10^6/uL Hemoglobin 12.7 11.5-16.0 g/dL Hematocrit 37 35-52 % Mean Corpuscular Volume 90 80-99 fL Mean Corpuscular Hemoglobin 31 25-34 pg Mean Corpuscular Hemoglobin Concent 34 32-36 g/dL Red Cell Distribution Width 13.3 10.0-14.5 % Platelet Count 134 130-400 10^3/uL Mean Platelet Volume 13.2 H 9.0-12.2 fL Immature Granulocyte % (Auto) 0 % Neutrophils (%) (Auto) 76 H 42-75 % Lymphocytes (%) (Auto) 18 12-44 % Monocytes (%) (Auto) 6 0-12 % Eosinophils (%) (Auto) 0 0-10 % Basophils (%) (Auto) 0 0-10 % Neutrophils # (Auto) 6.1 1.8-7.8 10^3/uL Lymphocytes # (Auto) 1.4 1.0-4.0 10^3/uL Monocytes # (Auto) 0.4 0.0-1.0 10^3/uL Eosinophils # (Auto) 0.0 0.0-0.3 10^3/uL Basophils # (Auto) 0.0 0.0-0.1 10^3/uL Immature Granulocyte # (Auto) 0.0 0.0-0.1 10^3/uL OB - Assessment/Plan/Diagnosis Assessment Assessment: active labor, induction of labor Admission Dx Induction of labor at 38 1/7 wga due to advanced dilation. Admission Status: Inpatient Order (span 2 midnights) Reason for Inpatient Admission: Induction of labor. Plan Induction Method: per Pitocin Protocol Other Plan GBS negative. AROM clear fluid. Epidural for pain. Pitocin at 6. PAMELA ZHAO MD Nov 14, 2019 13:22
[2019-11-14] MEDS ORDERED: BUPIVACAINE 0.25% 30 ML (SENSORCAINE) VIAL ONE (14:00)
[2019-11-14] MEDS ORDERED: CATHETER FLUSH 10 ML SYR IV SCH ×2 (14:00→22:00)
[2019-11-14] MEDS ORDERED: LACTATED RINGERS 1,000 ML IV ONE (14:08)
[2019-11-14] MEDS ORDERED: CATHETER FLUSH 10 ML SYR IV PRN ×2 (14:15→14:45)
[2019-11-14] MEDS ORDERED: NALOXONE 0.4 MG/ML 1 ML (NARCAN) VIAL IV PRN ×2 (14:15→14:45)
[2019-11-14 14:41] LABS: BILIRUBIN,URINE NEGATIVE (NEGATIVE); CLARITY,URINE CLEAR; COLOR,URINE YELLOW; GLUCOSE, URINE (UA) NEGATIVE (NEGATIVE); KETONES,URINE 1+ (NEGATIVE); LEUKOCYTE ESTERASE ,URINE TRACE (NEGATIVE); NITRITE,URINE NEGATIVE (NEGATIVE); PROTEIN,URINE NEGATIVE (NEGATIVE)
[2019-11-14 14:53] LABS: BACTERIA,URINE MODERATE /HPF; RBC,URINE RARE /HPF
[2019-11-14] MEDS ORDERED: [UNRECOGNIZED DRUG - OTHER] IV SCH ×2 (15:00)
[2019-11-14] MEDS ORDERED: BUPIVACAINE IV SCH ×2 (15:00)
[2019-11-14] MEDS ORDERED: ONDANSETRON 4 MG/2 ML (SDV) Z0FRAN ONE (15:35)
[2019-11-14] MEDS ORDERED: ONDANSETRON 4 MG/2 ML (SDV) Z0FRAN IVP ONE (15:45)
[2019-11-14] MEDS ORDERED: MEASLES,MUMPS,RUBELLA 1 EA INJ SQ ONE (16:15)
[2019-11-14] MEDS ORDERED: TETANUS,DIPTH,PERTUSS P/F (BOOSTRIX) 0.5 ML VIAL IM ONE (16:15)
[2019-11-14] MEDS ORDERED: WITCH HAZEL(TUCKS) 40 EA JAR TOP PRN (16:15)
[2019-11-14] MEDS ORDERED: BENZOCAINE/MENTHOL (DERMOPLAST) 60 ML CAN TP PRN (16:15)
--- NOTE | 2019-11-14 16:16 | Discharge Summary ---
Discharge Inst-[facility] Reconcile Patient Problems Problems Reviewed?: Yes Follow Up/Instructions Goal/Follow Up: Dr. Zhao in 6 weeks. Activity Activity: Activity as Tolerated Driving Instructions: You May Drive NO SMOKING: NO SMOKING Nothing Inside Vagina: No Douching, No [place], No Tampons Diet Discharge Diet: No Restrictions Symptoms to Report to : Fever Over 101 Degrees F, Vaginal Bleeding Increase For Any Problems or Questions: Contact Your Physician PAMELA ZHAO MD Nov 14, 2019 16:16
--- NOTE | 2019-11-14 16:51 | OB Labor & Delivery Record ---
Vag Delivery Note Vag Delivery Note Date of Delivery: 11/14/19 Preoperative Diagnosis: Evangelina Bueno is a (24 /Para 2 / 1, Gestational Age (wks)38with [1 day] Postoperative Diagnosis: Same Surgeon: PAMELA ZHAO Marine Chronometer Assembler: [none] Anesthesia: [epidural] Delivery Type: [] Findings: [] Viable [male] infant, apgars [8/9] Lacerations: Intact placenta with 3 vessel cord. No nuchal cord, body cord or shoulder dystocia Estimated Blood Loss: [200] ml Complications: None Condition: Stable Description of Procedure: The patient is a 24 year old female who presented [with advance dilation]. She was admitted and informed consent was obtained. Her labor course was remarkable for [nothing] She progressed to complete dilatation and began to push. She was then set up for delivery. The infant's head was delivered atraumatically in the [OA] position. The shoulders and remainder of the 's body were then delivered without difficulty. Upon delivery, the head was held below the level of the perineum and the mouth and nares were bulb suctioned. The cord was doubly clamped and cut by grandmother of the infant on maternal abdomen after 60 seconds. An intact placenta with 3-vessel cord delivered via [place] and there was found to be minimal bleeding.~ Vigorous fundal massage was performed and the fundus was found to be firm. IV oxytocin was given. Examination of the vagina and perineum revealed a [no] lacerations. Following the repair, sponge, instrument and needle counts were correct. Mom and baby were both in stable condition in the labor suite. Vitals - Labs Vital Signs - I&O Vital Signs Date Time Temp Pulse Resp B/P (MAP) Pulse Ox O2 Delivery O2 Flow Rate FiO2 11/14/19 16:05 80 18 151/92 (111) 100 Room Air 11/14/19 15:50 82 18 135/82 (99) 100 Room Air 11/14/19 15:35 36.4 85 18 134/88 (103) 100 Room Air 11/14/19 15:20 87 18 139/79 (99) 100 Room Air 11/14/19 15:05 36.5 84 18 134/80 (98) 100 Room Air 11/14/19 14:50 90 18 122/71 (88) 98 Room Air 11/14/19 14:45 88 18 124/63 (83) 100 Room Air 11/14/19 14:40 93 18 132/79 (96) 100 Room Air 11/14/19 14:35 96 18 125/78 (94) 100 Room Air 11/14/19 14:30 89 18 133/85 (101) 100 Room Air 11/14/19 14:26 81 18 133/92 (106) 100 Room Air 11/14/19 14:23 86 18 131/84 (100) 100 Room Air 11/14/19 14:20 93 18 147/79 (101) 100 Room Air 11/14/19 14:17 81 18 155/86 (109) 100 Room Air 11/14/19 14:10 88 18 133/82 (99) 98 Room Air 11/14/19 13:55 90 18 122/74 (90) 11/14/19 13:38 81 18 130/79 (96) 100 Room Air 11/14/19 13:23 83 18 121/76 (91) 100 Room Air 11/14/19 13:08 93 18 115/80 (92) 100 Room Air 11/14/19 12:53 79 18 116/83 (94) 100 Room Air 11/14/19 12:38 81 18 122/79 (93) 100 Room Air 11/14/19 12:23 36.9 77 18 120/75 (90) 100 Room Air 11/14/19 12:08 84 18 125/75 (92) 100 Room Air 11/14/19 11:53 88 18 116/79 (91) 99 Room Air 11/14/19 11:47 36.5 82 18 100 Room Air 11/14/19 11:38 82 18 114/77 (89) 99 Room Air 11/14/19 11:28 89 18 112/77 (89) 100 Room Air 11/14/19 11:00 78 18 135/80 (98) 11/14/19 10:30 36.6 83 18 129/78 (95) Labs Laboratory Tests 11/14/19 10:55: White Blood Count 8.0, Red Blood Count 4.12, Hemoglobin 12.7, Hematocrit 37, Mean Corpuscular Volume 90, Mean Corpuscular Hemoglobin 31, Mean Corpuscular Hemoglobin Concent 34, Red Cell Distribution Width 13.3, Platelet Count 134, Mean Platelet Volume 13.2H, Immature Granulocyte % (Auto) 0, Neutrophils (%) (Auto) 76H, Lymphocytes (%) (Auto) 18, Monocytes (%) (Auto) 6, Eosinophils (%) (Auto) 0, Basophils (%) (Auto) 0, Neutrophils # (Auto) 6.1, Lymphocytes # (Auto) 1.4, Monocytes # (Auto) 0.4, Eosinophils # (Auto) 0.0, Basophils # (Auto) 0.0, Immature Granulocyte # (Auto) 0.0, Urine Color YELLOW, Urine Clarity CLEAR, Urine pH 6.0, Urine Specific [place] 1.025H, Urine Protein NEGATIVE, Urine Glucose (UA) NEGATIVE, Urine Ketones 1+H, Urine Nitrite NEGATIVE, Urine Bilirubin NEGATIVE, Urine Urobilinogen 1.0, Urine Leukocyte Esterase TRACEH, Urine RBC (Auto) TRACE-I, Urine RBC RARE, Urine WBC 2-5, Urine Squamous Epithelial Cells 5-10, Urine Crystals NONE, Urine Bacteria MODERATEH, Urine Casts NONE, Urine Mucus MODERATEH, Urine Culture Indicated NO PAMELA ZHAO MD Nov 14, 2019 16:51
[2019-11-14] MEDS: IBUPROFEN 600 MG (MOTRIN) TAB PO SCH (17:12)
[2019-11-14] MEDS: ACETAMINOPHEN 500 MG TAB (TYLENOL) PO SCH (22:11)
[2019-11-15 00:09] VITALS: BP 118/82
[2019-11-15] MEDS: DOCUSATE SODIUM 100 MG (COLACE) CAP PO SCH ×2 (00:10→14:51)
[2019-11-15] MEDS: IBUPROFEN 600 MG (MOTRIN) TAB PO SCH ×3 (00:10→14:52)
[2019-11-15 05:59] LABS: EOSINOPHILS % (AUTO) 0 % (0-10); MEAN CORPUSCULAR VOLUME 91 fL (80-99)
[2019-11-15 06:01] LABS: BASOPHILS % (AUTO) 0 % (0-10); HEMATOCRIT 32 % (35-52); HEMOGLOBIN 10.9 g/dL (11.5-16.0); LYMPHOCYTES # (AUTO) 1.5 10^3/uL (1.0-4.0); LYMPHOCYTES % (AUTO) 18 % (12-44); MEAN CORPUSCULAR HEMOGLOBIN 31 pg (25-34); MEAN CORPUSCULAR HGB CONC 34 g/dL (32-36); MEAN PLATELET VOLUME 13.5 fL (9.0-12.2); MONOCYTES # (AUTO) 0.6 10^3/uL (0.0-1.0); MONOCYTES % (AUTO) 7 % (0-12); NEUTROPHILS # (AUTO) 6.1 10^3/uL (1.8-7.8); NEUTROPHILS % (AUTO) 74 % (42-75); PLATELET COUNT 122 10^3/uL (130-400); WHITE BLOOD COUNT 8.3 10^3/uL (4.3-11.0)
[2019-11-15] MEDS: ACETAMINOPHEN 500 MG TAB (TYLENOL) PO SCH ×2 (06:23→14:52)
[2019-11-15 06:24] VITALS: BP 112/84
[2019-11-15 08:40] VITALS: BP 117/85
--- NOTE | 2019-11-15 10:15 | Progress Note ---
Standard Progress Note Progress Notes/Assess & Plan Date Seen by a Provider: Nov 15, 2019 Time Seen by a Provider: 10:14 Progress/Assessment & Plan this patient is without complaint. She is ambulating, voiding, tolerating oral intake well has good pain control. Vital Signs Date Time Temp Pulse Resp B/P (MAP) Pulse Ox O2 Delivery O2 Flow Rate FiO2 11/15/19 06:24 36.8 74 18 112/84 (93) 98 11/15/19 00:09 37.0 74 18 118/82 (94) 97 11/14/19 19:35 82 18 133/68 (89) 11/14/19 19:20 76 18 130/92 (105) 11/14/19 19:05 115 18 121/90 (100) 98 11/14/19 18:38 82 18 130/79 (96) 11/14/19 18:20 63 18 129/80 (96) 11/14/19 18:05 36.5 77 18 126/75 (92) 11/14/19 17:35 83 18 141/78 (99) 11/14/19 17:20 82 18 135/73 (93) 11/14/19 17:05 36.5 96 18 137/81 (99) 11/14/19 16:35 86 18 139/72 (94) 11/14/19 16:20 81 18 138/93 (108) 100 Room Air 11/14/19 16:05 80 18 151/92 (111) 100 Room Air 11/14/19 15:50 82 18 135/82 (99) 100 Room Air 11/14/19 15:35 36.4 85 18 134/88 (103) 100 Room Air 11/14/19 15:20 87 18 139/79 (99) 100 Room Air 11/14/19 15:05 36.5 84 18 134/80 (98) 100 Room Air 11/14/19 14:50 90 18 122/71 (88) 98 Room Air 11/14/19 14:45 88 18 124/63 (83) 100 Room Air 11/14/19 14:40 93 18 132/79 (96) 100 Room Air 11/14/19 14:35 96 18 125/78 (94) 100 Room Air 11/14/19 14:30 89 18 133/85 (101) 100 Room Air 11/14/19 14:26 81 18 133/92 (106) 100 Room Air 11/14/19 14:23 86 18 131/84 (100) 100 Room Air 11/14/19 14:20 93 18 147/79 (101) 100 Room Air 11/14/19 14:17 81 18 155/86 (109) 100 Room Air 11/14/19 14:10 88 18 133/82 (99) 98 Room Air 11/14/19 13:55 90 18 122/74 (90) 11/14/19 13:38 81 18 130/79 (96) 100 Room Air 11/14/19 13:23 83 18 121/76 (91) 100 Room Air 11/14/19 13:08 93 18 115/80 (92) 100 Room Air 11/14/19 12:53 79 18 116/83 (94) 100 Room Air 11/14/19 12:38 81 18 122/79 (93) 100 Room Air 11/14/19 12:23 36.9 77 18 120/75 (90) 100 Room Air 11/14/19 12:08 84 18 125/75 (92) 100 Room Air 11/14/19 11:53 88 18 116/79 (91) 99 Room Air 11/14/19 11:47 36.5 82 18 100 Room Air 11/14/19 11:38 82 18 114/77 (89) 99 Room Air 11/14/19 11:28 89 18 112/77 (89) 100 Room Air 11/14/19 11:00 78 18 135/80 (98) 11/14/19 10:30 36.6 83 18 129/78 (95) I & O 11/15/19 07:00 Intake Total 2525 ml Balance 2525 ml vital signs are stable. Patient is afebrile. the abdomen is benign extremities are benign assessment and plan day number 1 status post term spontaneous vaginal delivery per Dr. Jaeger. Patient is requesting discharge home. Plan is for discharge home at her request Final Diagnosis term spontaneous vaginal delivery LUZ JAMES MD Nov 15, 2019 10:15
[2019-11-15] MEDS ORDERED: IBUP-844 PO (10:17)
[2019-11-15] MEDS ORDERED: ACET-93 PO (10:17)
[2019-11-15 14:45] VITALS: BP 114/81
[2019-11-15 19:50] VITALS: BP 124/83
[2019-11-16 03:00] VITALS: BP 109/75
[2019-11-16] MEDS: ACETAMINOPHEN 500 MG TAB (TYLENOL) PO SCH (06:36)
[2019-11-16] MEDS: IBUPROFEN 600 MG (MOTRIN) TAB PO SCH (06:36)
[2019-11-16 08:00] VITALS: BP 115/70
--- NOTE | 2019-11-16 12:13 | Progress Note ---
Standard Progress Note Progress Notes/Assess & Plan Date Seen by a Provider: Nov 16, 2019 Time Seen by a Provider: 10:40 Progress/Assessment & Plan this patient is without complaint. She is ambulating, voiding, tolerating oral intake well has good pain control. Vital Signs Date Time Temp Pulse Resp B/P (MAP) Pulse Ox O2 Delivery O2 Flow Rate FiO2 11/15/19 06:24 36.8 74 18 112/84 (93) 98 11/15/19 00:09 37.0 74 18 118/82 (94) 97 11/14/19 19:35 82 18 133/68 (89) 11/14/19 19:20 76 18 130/92 (105) 11/14/19 19:05 115 18 121/90 (100) 98 11/14/19 18:38 82 18 130/79 (96) 11/14/19 18:20 63 18 129/80 (96) 11/14/19 18:05 36.5 77 18 126/75 (92) 11/14/19 17:35 83 18 141/78 (99) 11/14/19 17:20 82 18 135/73 (93) 11/14/19 17:05 36.5 96 18 137/81 (99) 11/14/19 16:35 86 18 139/72 (94) 11/14/19 16:20 81 18 138/93 (108) 100 Room Air 11/14/19 16:05 80 18 151/92 (111) 100 Room Air 11/14/19 15:50 82 18 135/82 (99) 100 Room Air 11/14/19 15:35 36.4 85 18 134/88 (103) 100 Room Air 11/14/19 15:20 87 18 139/79 (99) 100 Room Air 11/14/19 15:05 36.5 84 18 134/80 (98) 100 Room Air 11/14/19 14:50 90 18 122/71 (88) 98 Room Air 11/14/19 14:45 88 18 124/63 (83) 100 Room Air 11/14/19 14:40 93 18 132/79 (96) 100 Room Air 11/14/19 14:35 96 18 125/78 (94) 100 Room Air 11/14/19 14:30 89 18 133/85 (101) 100 Room Air 11/14/19 14:26 81 18 133/92 (106) 100 Room Air 11/14/19 14:23 86 18 131/84 (100) 100 Room Air 11/14/19 14:20 93 18 147/79 (101) 100 Room Air 11/14/19 14:17 81 18 155/86 (109) 100 Room Air 11/14/19 14:10 88 18 133/82 (99) 98 Room Air 11/14/19 13:55 90 18 122/74 (90) 11/14/19 13:38 81 18 130/79 (96) 100 Room Air 11/14/19 13:23 83 18 121/76 (91) 100 Room Air 11/14/19 13:08 93 18 115/80 (92) 100 Room Air 11/14/19 12:53 79 18 116/83 (94) 100 Room Air 11/14/19 12:38 81 18 122/79 (93) 100 Room Air 11/14/19 12:23 36.9 77 18 120/75 (90) 100 Room Air 11/14/19 12:08 84 18 125/75 (92) 100 Room Air 11/14/19 11:53 88 18 116/79 (91) 99 Room Air 11/14/19 11:47 36.5 82 18 100 Room Air 11/14/19 11:38 82 18 114/77 (89) 99 Room Air 11/14/19 11:28 89 18 112/77 (89) 100 Room Air 11/14/19 11:00 78 18 135/80 (98) 11/14/19 10:30 36.6 83 18 129/78 (95) I & O 11/15/19 07:00 Intake Total 2525 ml Balance 2525 ml vital signs are stable. Patient is afebrile. the abdomen is benign extremities are benign assessment and plan day number 1 status post term spontaneous vaginal delivery per Dr. Jaeger. Patient is requesting discharge home. Plan is for discharge home at her request November 16, 2019 Patient is without complaint. She is ablating, voiding, tolerating oral intake well and has good pain control. She is requesting discharge home. Vital Signs Date Time Temp Pulse Resp B/P (MAP) Pulse Ox O2 Delivery O2 Flow Rate FiO2 11/16/19 03:00 36.6 75 20 109/75 (86) 99 11/15/19 19:50 37.0 99 18 124/83 (97) 80 11/15/19 14:45 36.6 71 20 114/81 (92) vital signs are stable. Patient is afebrile. Fundus is firm below the umbilicus and nontender. Extremities show no clubbing cyanosis. There is no Homans sign. Assessment and plan day number 2 status post term spontaneous vaginal delivery doing well. Plan is for discharge home Final Diagnosis term spontaneous vaginal delivery LUZ JAMES MD Nov 16, 2019 12:13
--- NOTE | 2019-11-16 15:39 | Anesthesia-Regional Post-Op ---
Regional Patient Condition Mental Status: Alert, Oriented x3 Circulation: Same as Pre-Op Headache: Absent Sensation: Full Recovery Motor Block: Absent Post Op Complications Complications None Follow Up Care/Instructions Patient Instructions None needed. Anesthesia/Patient Condition Patient is doing well, no complaints, stable vital signs, no apparent adverse anesthesia problems. No complications reported per nursing. JOSE CHÁVEZ CRNA Nov 16, 2019 15:39
== END 2019-11-16 15:55 | disposition home or self-care (01) | DRG 807 ==
LOC: LDRP 10:22
PROVIDERS: ADMIT Family Medicine; ATTEND Family Medicine
PROC: 10E0XZZ Delivery of Products of Conception, External Approach (ICD-10-PCS; principal; 2019-11-14)
PROC: 3E033VJ Introduction of Other Hormone into Peripheral Vein, Percutaneous Approach (ICD-10-PCS; 2019-11-14)
DX: O62.2 Other uterine inertia (principal); Z37.0 Single live birth; Z3A.38 38 weeks gestation of pregnancy; Z23 Encounter for immunization
CPT/HCPCS: 36415; 81000; 85025; 86850; 86900; 86901; 90686; 90707; 99212

== ENCOUNTER 2020-09-13 12:06 | Emergency (ER) | payer MEDICAID ==
[~2020-09-13] VITALS: Ht 157.5 cm; Wt 86.2 kg
[~2020-09-13 12:06] MED LIST changes: +ACET-93 PO; +IBUP-844 PO
--- NOTE | 2020-09-13 12:15 | ED Cough/URI ---
General Stated Complaint: COVID+; CHEST CONGESTION; VOMITING History of Present Illness Date Seen by Provider: Sep 13, 2020 Time Seen by Provider: 12:15 Initial Comments 25-year-old female presents with generalized malaise, cough, chest congestion, nausea and vomiting. Patient was diagnosed about 1 week ago today with Covid. Patient symptoms initially were just some sore throat and malaise and has worsened throughout the week. Patient reports now that she is just having a hard time keeping anything down over the last 2 to 3 days. She has pain in her epigastric region. Allergies and Home Medications Allergies Coded Allergies: fentanyl (Unverified Allergy, Intermediate, PROFUSE VOMITING, 04/19/18) Home Medications Acetaminophen 500 Mg Tablet, 1,000 MG PO Q8HR Prescribed by: LUZ FREEDMAN on 11/15/19 1017 Ibuprofen 600 Mg Tablet, 600 MG PO Q6HR Prescribed by: LUZ FREEDMAN on 11/15/19 1017 Patient Home Medication List Home Medication List Reviewed: Yes Review of Systems Review of Systems Constitutional: malaise EENTM: see HPI Respiratory: cough, short of breath Cardiovascular: No chest pain, No palpitations Gastrointestinal: abdominal pain (Epigastric), nausea, vomiting Genitourinary: decreased output Musculoskeletal: no symptoms reported Skin: no symptoms reported Psychiatric/Neurological: No Symptoms Reported Hematologic/Lymphatic: No Symptoms Reported Immunological/Allergic: no symptoms reported Past Habntro-Oookue-Mcselg Hx Immunizations Up To Date PED Vaccines UTD: Yes Seasonal Allergies Seasonal Allergies: No Past Medical History Surgeries: Yes (breast biopsy) Gallbladder Respiratory: No Cardiac: No Neurological: No Headaches /Migraines Reproductive Disorders: No Sexually Transmitted Disease: No HIV/AIDS: No Genitourinary: No Gastrointestinal: Yes (gallbladder removed) Gastroesophageal Reflux, Gall Bladder Disease Musculoskeletal: No Endocrine: No HEENT: No Loss of Vision: Denies Hearing Impairment: Denies Cancer: No Psychosocial: No Integumentary: No Blood Disorders: No Adverse Reaction/Blood Tranf: No (N/A) Family Medical History FHx: diabetes mellitus 19 MOTHER No Pertinent Family Hx Physical Exam Vital Signs - First Documented 09/13/20 12:12 Temp 37.8 Pulse 121 Resp 23 B/P (MAP) 110/95 (100) Pulse Ox 95 O2 Delivery Room Air Capillary Refill : Height: 5'2.00" Weight: 153lbs. 0.0oz. [id number]; 35.13 BMI Method:Stated General Appearance: mild distress Neck: full range of motion, supple Respiratory: no respiratory distress, no accessory muscle use, decreased breath sounds (Mild bibasilar) Cardiovascular: normal peripheral pulses, tachycardia Gastrointestinal: soft, tenderness (Epigastric) Neurologic/Psychiatric: alert, normal mood/affect, oriented x 3 Skin: normal color, warm/dry Focused Exam Lactate Level 09/13/20 12:40: Lactic Acid Level 1.39 Lactic Acid Level Laboratory Tests Test 09/13/20 12:40 Lactic Acid Level 1.39 MMOL/L (0.50-2.00) Progress/Results/Core Measures Suspected Sepsis SIRS Temperature: Pulse: Respiratory Rate: Laboratory Tests 09/13/20 12:23: White Blood Count 7.5 Blood Pressure / Mean: 09/13/20 12:40: Lactic Acid Level 1.39 Laboratory Tests 09/13/20 12:23: Creatinine 0.89, Platelet Count 199, Total Bilirubin 0.8 Results/Orders Lab Results Laboratory Tests Test 09/13/20 12:23 09/13/20 12:31 09/13/20 12:40 Range/Units White Blood Count 7.5 4.3-11.0 10^3/uL Red Blood Count 5.29 4.35-5.85 10^6/uL Hemoglobin 15.5 11.5-16.0 G/DL Hematocrit 45 35-52 % Mean Corpuscular Volume 84 80-99 FL Mean Corpuscular Hemoglobin 29 25-34 PG Mean Corpuscular Hemoglobin Concent 35 32-36 G/DL Red Cell Distribution Width 13.2 10.0-14.5 % Platelet Count 199 130-400 10^3/uL Mean Platelet Volume 12.1 H 7.4-10.4 FL Immature Granulocyte % (Auto) 0 % Neutrophils (%) (Auto) 69 42-75 % Lymphocytes (%) (Auto) 21 12-44 % Monocytes (%) (Auto) 10 0-12 % Eosinophils (%) (Auto) 0 0-10 % Basophils (%) (Auto) 0 0-10 % Neutrophils # (Auto) 5.1 1.8-7.8 X 10^3 Lymphocytes # (Auto) 1.6 1.0-4.0 X 10^3 Monocytes # (Auto) 0.8 0.0-1.0 X 10^3 Eosinophils # (Auto) 0.0 0.0-0.3 10^3/uL Basophils # (Auto) 0.0 0.0-0.1 10^3/uL Immature Granulocyte # (Auto) 0.0 0.0-0.1 10^3/uL Sodium Level 138 135-145 MMOL/L Potassium Level 3.3 L 3.6-5.0 MMOL/L Chloride Level 98 98-107 MMOL/L Carbon Dioxide Level 23 21-32 MMOL/L Anion Gap 17 H 5-14 MMOL/L Blood Urea Nitrogen 21 H 7-18 MG/DL Creatinine 0.89 0.60-1.30 MG/DL Estimat Glomerular Filtration Rate 79 BUN/Creatinine Ratio 24 Glucose Level 95 70-105 MG/DL Calcium Level 9.4 8.5-10.1 MG/DL Corrected Calcium 9.0 8.5-10.1 MG/DL Total Bilirubin 0.8 0.1-1.0 MG/DL Aspartate Amino Transf (AST/SGOT) 89 H 5-34 U/L Alanine Aminotransferase (ALT/SGPT) 62 H 0-55 U/L Alkaline Phosphatase 95 40-136 U/L Total Protein 8.7 H 6.4-8.2 GM/DL Albumin 4.5 3.2-4.5 GM/DL Lipase 36 8-78 U/L Urine Color YELLOW Urine Clarity TURBID Urine pH 6.0 5-9 Urine Specific [place] 1.025 H 1.016-1.022 Urine Protein 2+ H NEGATIVE Urine Glucose (UA) TRACE H NEGATIVE Urine Ketones 1+ H NEGATIVE Urine Nitrite NEGATIVE NEGATIVE Urine Bilirubin 2+ H NEGATIVE Urine Urobilinogen 4.0 < = 1.0 MG/DL Urine Leukocyte Esterase NEGATIVE NEGATIVE Urine RBC (Auto) TRACE H NEGATIVE Urine RBC NONE /HPF Urine WBC 0-2 /HPF Urine Squamous Epithelial Cells 0-2 /HPF Urine Crystals NONE /LPF Urine Bacteria LARGE H /HPF Urine Casts PRESENT /LPF Urine Hyaline Casts RARE /LPF Urine Mucus MODERATE H /LPF Urine Culture Indicated NO Urine Test NEGATIVE NEGATIVE Lactic Acid Level 1.39 0.50-2.00 MMOL/L My Orders Orders - MACE,KRISTI L DO Ondansetron Injection (Zofran Injectio (09/13/20 12:30) Ns Iv 1000 Ml (Sodium Chloride 0.9%) (09/13/20 12:22) Famotidine Injection (Pepcid Injection) (09/13/20 12:22) Cbc With Automated Diff (09/13/20 12:22) Comprehensive Metabolic Panel (09/13/20 12:22) Lactic Acid Analyzer (09/13/20 12:22) Lipase (09/13/20 12:22) Ua Culture If Indicated (09/13/20 12:22) Abdomen (Kub) 1 View (09/13/20 12:22) Chest 1 View Ap/Pa Only (09/13/20 12:22) Benzonatate Capsule (Tessalon Perles) (09/13/20 12:30) Hcg,Qualitative Urine (09/13/20 12:36) Dexamethasone Injection (Decadron Inje (09/13/20 13:45) Ns Iv 1000 Ml (Sodium Chloride 0.9%) (09/13/20 13:51) Medications Given in ED Current Medications Medications Dose Ordered Sig/Breanna Route Start Time Stop Time Status Last Admin Dose Admin Ondansetron HCl 4 mg ONCE ONCE IVP 09/13/20 12:30 09/13/20 12:31 DC 09/13/20 12:35 4 MG Vital Signs/I&O 09/13/20 12:12 Temp 37.8 Pulse 121 Resp 23 B/P (MAP) 110/95 (100) Pulse Ox 95 O2 Delivery Room Air Capillary Refill : Progress Note : Progress Note Patient symptoms improved significantly following IV fluids and Zofran. Patient is feeling much better. Reviewed findings with patient. Recommend she follow- up with her primary care provider or return the ER if symptoms continue to worsen. Patient stable with her oxygen in the mid upper 90s throughout her stay. Diagnostic Imaging Diagonstic Imaging: Xray Plain Films/CT/US/NM/MRI: chest Comments CHEST 1 VIEW AP/PA ONLY INDICATION: Covid positive patient, cough. Frontal chest obtained at 12:44 p.m. There is no prior study for comparison. Heart is normal in size. Mediastinal silhouette is unremarkable. There is some mild right perihilar and bibasilar infiltrate. There is no pneumothorax or pleural fluid. IMPRESSION: Mild bibasilar and right perihilar infiltrate are noted, early pneumonia not excluded. I suggest follow-up as clinically warranted. Reviewed: Reviewed by Me, Reviewed/Discussed Diagonstic Imaging: Xray Plain Films/CT/US/NM/MRI: abdomen Comments Date of Exam:09/13/20 ABDOMEN (KUB) 1 VIEW INDICATION: Nausea and vomiting Abdominal film obtained at 12:46 p.m. Abdominal bowel gas pattern is unremarkable. There are surgical clips in the right upper quadrant. There is no overt obstruction or ileus. IMPRESSION: Unremarkable bowel gas pattern. Reviewed: Reviewed by Me, Reviewed/Discussed Departure Impression Primary Impression: COVID-19 Additional Impression: Pneumonia due to COVID-19 virus Disposition: HOME, SELF-CARE Condition: Stable Departure-Patient Inst. Referrals: PAMELA ZHAO MD (PCP/Family) Primary Care Physician Patient Instructions: COVID-19 (DC) Add. Discharge Instructions: Drink plenty of fluids, get plenty of rest Return to the ER or follow-up with your primary care provider if your shortness of breath continues to worsen Scripts Ondansetron (Ondansetron Odt) 4 Mg Tab.rapdis 4 MG PO Q6H PRN for NAUSEA/VOMITING, #20 TAB 0 Refills Prov: KRISTI MACE DO 09/13/20 KRISTI MACE DO Sep 13, 2020 12:15
[2020-09-13] MEDS ORDERED: NS IV 1000 ML 1,000 ML IV STA ×2 (12:22→13:51)
[2020-09-13] MEDS ORDERED: FAMOTIDINE 20MG/2ML IV (PEPCID) IV STA (12:22)
[2020-09-13] MEDS ORDERED: ONDANSETRON 4 MG/2 ML (SDV) Z0FRAN IVP ONE (12:30)
[2020-09-13] MEDS ORDERED: BENZONATATE 100 MG (TESSALON) CAPSULE PO SCH (12:30)
[2020-09-13 12:38] LABS: HEMATOCRIT 45 % (35-52); HEMOGLOBIN 15.5 G/DL (11.5-16.0); MEAN CORPUSCULAR HEMOGLOBIN 29 PG (25-34); WHITE BLOOD COUNT 7.5 10^3/uL (4.3-11.0)
[2020-09-13 12:39] LABS: BASOPHILS % (AUTO) 0 % (0-10); EOSINOPHILS % (AUTO) 0 % (0-10); LYMPHOCYTES # (AUTO) 1.6 X 10^3 (1.0-4.0); LYMPHOCYTES % (AUTO) 21 % (12-44); MEAN CORPUSCULAR HGB CONC 35 G/DL (32-36); MEAN CORPUSCULAR VOLUME 84 FL (80-99); MEAN PLATELET VOLUME 12.1 FL (7.4-10.4); MONOCYTES # (AUTO) 0.8 X 10^3 (0.0-1.0); MONOCYTES % (AUTO) 10 % (0-12); NEUTROPHILS # (AUTO) 5.1 X 10^3 (1.8-7.8); NEUTROPHILS % (AUTO) 69 % (42-75); PLATELET COUNT 199 10^3/uL (130-400)
--- NOTE | 2020-09-13 12:55 | Diagnostic Imaging Report ---
INDICATION: Covid positive patient, cough. Frontal chest obtained at 12:44 p.m. There is no prior study for comparison. Heart is normal in size. Mediastinal silhouette is unremarkable. There is some mild right perihilar and bibasilar infiltrate. There is no pneumothorax or pleural fluid. IMPRESSION: Mild bibasilar and right perihilar infiltrate are noted, early pneumonia not excluded. I suggest follow-up as clinically warranted. Dictated by: Dictated on workstation # [id number]
[2020-09-13 12:59] LABS: CLARITY,URINE TURBID; COLOR,URINE YELLOW; GLUCOSE, URINE (UA) TRACE (NEGATIVE); KETONES,URINE 1+ (NEGATIVE); NITRITE,URINE NEGATIVE (NEGATIVE); PROTEIN,URINE 2+ (NEGATIVE)
[2020-09-13 13:00] LABS: BILIRUBIN,URINE 2+ (NEGATIVE); LEUKOCYTE ESTERASE ,URINE NEGATIVE (NEGATIVE)
[2020-09-13 13:01] LABS: BACTERIA,URINE LARGE /HPF; HYALINE CASTS, URINE RARE /LPF; SQUAMOUS EPITHELIAL CELL,UR 0-2 /HPF; WBC,URINE 0-2 /HPF
--- NOTE | 2020-09-13 13:03 | Diagnostic Imaging Report ---
INDICATION: Nausea and vomiting Abdominal film obtained at 12:46 p.m. Abdominal bowel gas pattern is unremarkable. There are surgical clips in the right upper quadrant. There is no overt obstruction or ileus. IMPRESSION: Unremarkable bowel gas pattern. Dictated by: Dictated on workstation # [id number]
[2020-09-13 13:33] LABS: POTASSIUM 3.3 MMOL/L (3.6-5.0)
[2020-09-13 13:34] LABS: BILIRUBIN,TOTAL 0.8 MG/DL (0.1-1.0); CALCIUM 9.4 MG/DL (8.5-10.1); CREATININE SERUM 0.89 MG/DL (0.60-1.30); TOTAL PROTEIN 8.7 GM/DL (6.4-8.2)
[2020-09-13 13:35] LABS: ALBUMIN 4.5 GM/DL (3.2-4.5)
[2020-09-13] MEDS ORDERED: ONDA4TAB11 PO (14:28)
[2020-09-13 15:52] VITALS: BP 116/69
== END 2020-09-13 15:52 | disposition home or self-care (01) ==
LOC: EDUNIT# 12:06 → ER FS 12:09
DX: U07.1 COVID-19 (principal); J12.82 Pneumonia due to coronavirus disease 2019
CPT/HCPCS: 36415; 71045; 74018; 80053; 81000; 83605; 83690; 84703; 85025

== ENCOUNTER 2021-01-20 17:32 | Emergency (ER) | payer MEDICAID ==
[~2021-01-20] VITALS: Ht 157 cm; Wt 84.0 kg
[~2021-01-20 17:32] MED LIST changes: +ONDA4TAB11 PO
--- NOTE | 2021-01-20 17:44 | ED EENT ---
History of Present Illness General Chief Complaint: Dental Problems/Pain Stated Complaint: FACIAL SWELLING FROM TOOTH EXTRACTION Source: patient Exam Limitations: no limitations History of Present Illness Date Seen by Provider: Jan 20, 2021 Time Seen by Provider: 17:39 Initial Comments Patient is a 25-year-old female who underwent wisdom tooth extraction yesterday who presents with facial swelling left greater than right. She reports continued pain and swelling and is currently taking hydrocodone and Amoxil Menton. She denies trismus, dysphonia and drooling. She has been in contact with her dental office who instructed her to come to the ED for evaluation. Reports nausea without vomiting. No other acute symptoms or complaints. Timing/Duration: gradual Severity: moderate Location: mouth, facial Prearrival Treatment: other Modifying Factors: Improves With Other Associated Symptoms: other Allergies and Home Medications Allergies Coded Allergies: fentanyl (Unverified Allergy, Intermediate, PROFUSE VOMITING, 04/19/18) Patient Home Medication List Home Medication List Reviewed: Yes Acetaminophen (Acetaminophen) 500 Mg Tablet, 1,000 MG PO Q8HR Prescribed by: LUZ FREEDMAN on 11/15/19 1017 Ibuprofen (Ibu) 600 Mg Tablet, 600 MG PO Q6HR Prescribed by: LUZ FREEDMAN on 11/15/19 1017 Ondansetron (Ondansetron Odt) 4 Mg Tab.rapdis, 4 MG PO Q6H PRN for NAUSEA/VOMITING Prescribed by: KRISTI MACE on 09/13/20 1428 Review of Systems Review of Systems Constitutional: see HPI Eyes: See HPI Ears: See HPI Nose: see HPI Throat: see HPI Past Eylilxi-Lgrxfa-Wipraj Hx Patient Social History Tobacco Use?: No Immunizations Up To Date PED Vaccines UTD: Yes Seasonal Allergies Seasonal Allergies: No Past Medical History Surgeries: Yes (breast biopsy) Gallbladder Respiratory: No Cardiac: No Neurological: No Headaches /Migraines Reproductive Disorders: No Sexually Transmitted Disease: No HIV/AIDS: No Genitourinary: No Gastrointestinal: Yes (gallbladder removed) Gastroesophageal Reflux, Gall Bladder Disease Musculoskeletal: No Endocrine: No HEENT: No Loss of Vision: Denies Hearing Impairment: Denies Cancer: No Psychosocial: No Integumentary: No Blood Disorders: No Adverse Reaction/Blood Tranf: No (N/A) Family Medical History FHx: diabetes mellitus 19 MOTHER No Pertinent Family Hx Physical Exam Height, Weight, BMI Height: 5'2.00" Weight: 153lbs. 0.0oz. 69.151366vi; 34.00 BMI Method:Stated General Appearance: WD/WN, no apparent distress Eyes: bilateral eye normal inspection, bilateral eye PERRL, bilateral eye EOMI Nose: normal inspection, active bleeding Mouth/Throat: other (submandibular swelling left sided, greater than right) Neck: other (No drooling or trismus or dysphonia.) Cardiovascular: regular rate, rhythm Gastrointestinal: non tender Neurologic/Psychiatric: alert, oriented x 3 Departure Communication (Admissions) Exam consistent with post extraction pain and swelling. Recommendations are continued management with dentist with follow-up tomorrow. Impression Primary Impression: Facial swelling Disposition: 01 HOME, SELF-CARE Condition: Stable Departure-Patient Inst. Decision time for Depature: 17:53 Referrals: PAMELA ZHAO MD (PCP/Family) Primary Care Physician Add. Discharge Instructions: Your exam is consistent with post dental extraction. Please continue recommendations and management per your dentist follow-up with their office tomorrow for further recommendations. In the meantime, continue medications as prescribed. All discharge instructions reviewed with patient and/or family. Voiced understanding. DIEGO MONTANA DO Jan 20, 2021 17:44
[2021-01-20 17:58] VITALS: BP 152/104
== END 2021-01-20 17:58 | disposition home or self-care (01) ==
LOC: EDUNIT# 17:32 → ER FS 17:35
DX: R22.0 Localized swelling, mass and lump, head (principal)
CPT/HCPCS: 99281

== ENCOUNTER → 2021-07-13 | Outpatient (CLI) | payer MEDICAID | LOC: LABNPT 14:43 | PROVIDERS: ATTEND Family Medicine | DX: Z20.822 Contact with and (suspected) exposure to COVID-19 (principal) | CPT/HCPCS: 87636 ==

== ENCOUNTER 2021-08-13 15:09 | Emergency (ER) | payer MEDICAID ==
[~2021-08-13] VITALS: Ht 157.5 cm; Wt 84.4 kg
--- NOTE | 2021-08-13 15:27 | ED General ---
General Chief Complaint: Bite-Animal/Human/Insect Stated Complaint: DOG BITE LT HAND/CHEST Source of Information: Patient Exam Limitations: No Limitations History of Present Illness Date Seen by Provider: Aug 13, 2021 Time Seen by Provider: 15:14 Initial Comments 26yoF that is roughly at roughly 15 WGA coming in due to a dog bite to her left hand and right breast. She is having constant throbbing pain in her left hand and right breast which is moderate, nothing seems to make better or worse. She taken nothing for it as of yet. This happened about an hour ago. The dog is a boxer and is not vaccinated. The dog is acting normally, is a family dog, and is healthy appearing. Tetanus is up-to-date. Allergies and Home Medications Allergies Coded Allergies: fentanyl (Unverified Allergy, Intermediate, PROFUSE VOMITING, 04/19/18) Patient Home Medication List Home Medication List Reviewed: Yes Acetaminophen (Acetaminophen) 500 Mg Tablet, 1,000 MG PO Q8HR Prescribed by: LUZ FREEDMAN on 11/15/19 1017 Amoxicillin/Potassium Clav (Amox Tr-K Clv 875-125 mg Tab) 875 Mg-125 Mg Tablet, 1 EACH PO BID Prescribed by: BAILEE KONG on 08/13/21 1625 Ibuprofen (Ibu) 600 Mg Tablet, 600 MG PO Q6HR Prescribed by: LUZ FREEDMAN on 11/15/19 1017 Ondansetron (Ondansetron Odt) 4 Mg Tab.rapdis, 4 MG PO Q6H PRN for NAUSEA/VOMITING Prescribed by: KRISTI MACE on 09/13/20 1428 Review of Systems Review of Systems Constitutional: No fever EENTM: no symptoms reported Respiratory: no symptoms reported Cardiovascular: no symptoms reported Gastrointestinal: no symptoms reported Genitourinary: no symptoms reported Musculoskeletal: see HPI Skin: see HPI Psychiatric/Neurological: No Symptoms Reported Hematologic/Lymphatic: No Symptoms Reported Immunological/Allergic: no symptoms reported All Other Systems Reviewed Negative Unless Noted: Yes Past Ldmwake-Zyzeje-Syoczc Hx Patient Social History Tobacco Use?: No Smoking Status: Never a Smoker Smokeless Tobacco Frequency: Never a User Use of E-Cig and/or Vaping dev: No Use of E-Cig and/or Vaping [place]: Never a User Substance use?: No Alcohol Use?: No Pt feels they are or have been: No Immunizations Up To Date PED Vaccines UTD: Yes First/Initial COVID19 Vaccinat: 2020 Second COVID19 Vaccination Cassius: 2020 COVID19 Vaccine Rides Supervisor: CRISTINA Seasonal Allergies Seasonal Allergies: No Past Medical History Surgeries: Yes (breast biopsy) Gallbladder Respiratory: No Cardiac: No Neurological: No Headaches /Migraines Reproductive Disorders: No Sexually Transmitted Disease: No HIV/AIDS: No Genitourinary: No Gastrointestinal: Yes (gallbladder removed) Gastroesophageal Reflux, Gall Bladder Disease Musculoskeletal: No Endocrine: No HEENT: No Loss of Vision: Denies Hearing Impairment: Denies Cancer: No Psychosocial: No Integumentary: No Blood Disorders: No Adverse Reaction/Blood Tranf: No (N/A) Family Medical History FHx: diabetes mellitus 19 MOTHER No Pertinent Family Hx Physical Exam Vital Signs Vital Signs - First Documented 08/13/21 15:14 Temp 37.3 Pulse 85 Resp 19 B/P (MAP) 132/76 (94) O2 Delivery Room Air Capillary Refill : Height, Weight, BMI Height: 5'2.00" Weight: 153lbs. 0.0oz. 69.844400ul; 34.00 BMI Method:Stated General Appearance: No Apparent Distress, WD/WN HEENT: PERRL/EOMI, Normal ENT Inspection, Pharynx Normal Neck: Full Range of Motion, Normal Inspection, Non Tender, Supple Respiratory: Chest Non Tender, Lungs Clear, Normal Breath Sounds, No Accessory Muscle Use, No Respiratory Distress Cardiovascular: Regular Rate, Rhythm, No Edema, Normal Peripheral Pulses Gastrointestinal: Normal Bowel Sounds, Non Tender, Soft Back: Normal Inspection Extremity: Normal Capillary Refill, Normal Range of Motion, No Pedal Edema, Oth er (Bite leonard to the left hand and right breast) Neurologic/Psychiatric: Alert, No Motor/Sensory Deficits, Normal Mood/Affect Skin: Normal Color, Warm/Dry Lymphatic: No Adenopathy Procedures/Interventions Wound Location: Upper Extremities Other Wound Location left hand Wound Length (cm): 0.5 Wound's Depth, Shape: superficial Wound Explored: clean Irrigated w/ Saline (ccs): 500 Betadine Prep?: Yes Anesthesia: 1% Lidocaine Volume Anesthetic (ccs): 3 Suture: Ethlion Suture Size: 4-0 Other Closure Supply: Wound Adhesive Number of Sutures: 3 Progress All wounds located on the left hand dorsum side except wound #4 which is on her thenar surface of thumb wound 1- 0.5cm and superficial, 1 suture used wound 2- 0.5cm and superficial, 1 suture used wound 3- 0.5cm and superficial, 1 suture used wound 4- 0.4cm and superficial, tissue adhesive used Patient tolerated the procedure well with no complications Progress/Results/Core Measures Suspected Sepsis SIRS Temperature: Pulse: Respiratory Rate: Blood Pressure / Mean: Results/Orders My Orders Orders - BAILEE KONG MD Hand 3 View Left (08/13/21 15:31) Acetaminophen Tablet (Tylenol Tablet) (08/13/21 15:45) Amoxicillin/Clavulanate Tablet (Augmenti (08/13/21 15:31) Lidocaine 1% Inj 20 Ml (Xylocaine 1% Inj (08/13/21 15:45) Lidocaine 1% Inj 50 Ml (Xylocaine 1% Inj (08/13/21 15:38) Medications Given in ED Current Medications Medications Dose Ordered Sig/Breanna Route Start Time Stop Time Status Last Admin Dose Admin Acetaminophen 1,000 mg ONCE ONCE PO 08/13/21 15:45 08/13/21 15:46 DC 08/13/21 15:39 1,000 MG Lidocaine HCl 50 ml STK-MED ONCE .ROUTE 08/13/21 15:38 08/13/21 15:40 DC 08/13/21 15:55 50 ML Vital Signs/I&O 08/13/21 15:14 Temp 37.3 Pulse 85 Resp 19 B/P (MAP) 132/76 (94) O2 Delivery Room Air Capillary Refill : Progress Note : Progress Note 26-year-old female coming in due to dog bite to her left lower right breast. ABCs were intact and vitals were stable on presentation. Tetanus is up-to-date. Physical exam with the after mentioned wounds and the physical exam. She is has some bruising to her right breast with no puncture wound. X-ray of the left hand on my interpretation with no fracture or dislocation. The wounds were cleaned, numbed, and closed with nonabsorbable suture. One of the wounds was closed with tissue adhesive. She was started on Augmentin and will go home on this. Given Tylenol for pain. I believe she is stable for discharge with outpatient follow-up. She was sent home with strict return precautions Diagnostic Imaging Diagonstic Imaging: Xray Plain Films/CT/US/NM/MRI: hand Comments [facility]. [place], [place] NAME: HIMA VERDUGO [facility] REC#: [id number] PT STATUS: REG ER : 1995 PHYSICIAN: BAILEE KONG MD ADMIT DATE: 08/13/21/ER FS Draft Date of Exam:08/13/21 HAND 3 VIEW LEFT Indication: Left hand pain and swelling after dog bite injury. Comparison: None. Discussion: Three views of the left hand were obtained. Ring is noted on the base of the 4th finger. No fracture or dislocation. No soft tissue gas or foreign body otherwise. Joint spaces are maintained. Alignment is anatomic. Impression: Negative left hand. Dictated on workstation # [id number] Dict: 08/13/21 1553 Trans: 08/13/[address] [facility] [id number] Interpreted by: YOGESH SHANKS MD Electronically signed by: Departure Impression Primary Impression: Dog bite Qualified Codes: W54.0XXA - Bitten by dog, initial encounter Additional Impression: Hand laceration Qualified Codes: S61.412A - Laceration without foreign body of left hand, initial encounter Disposition: 01 HOME, SELF-CARE Condition: Stable Departure-Patient Inst. Decision time for Depature: 16:24 Referrals: PAMELA ZHAO MD (PCP) Primary Care Physician Patient Instructions: Laceration Repair With Stitches ED Add. Discharge Instructions: You will be on antibiotics twice a day for the next week. Ice the areas that hurt and take Tylenol as needed. The stitches need to come out in the next 6 to 8 days. He can come back to the ER if you cannot find anyone to take them out. Scripts Amoxicillin/Potassium Clav (Amox Tr-K Clv 875-125 mg Tab) 875 Mg-125 Mg Tablet 1 EACH PO BID for 7 Days, #14 TAB Prov: BAILEE KONG MD 08/13/21 Work/School Note: Work Release Form Date Seen in the Emergency Department: Aug 13, 2021 Return to Work: Aug 15, 2021 Restrictions: No Restrictions BAILEE KONG MD Aug 13, 2021 15:27
[2021-08-13] MEDS ORDERED: AUGMENTIN 875 MG TAB (AMOXICILLIN/CLAVULANATE) PO STA (15:31)
[2021-08-13] MEDS ORDERED: LIDOCAINE 1% INJ 50 ML (XYLOCAINE) VIAL ONE (15:38)
[2021-08-13] MEDS ORDERED: LIDOCAINE 1% INJ 20 ML VIAL INJ ONE (15:45)
[2021-08-13] MEDS ORDERED: ACETAMINOPHEN 500 MG TAB (TYLENOL) PO ONE (15:45)
--- NOTE | 2021-08-13 16:01 | Diagnostic Imaging Report ---
Indication: Left hand pain and swelling after dog bite injury. Comparison: None. Discussion: Three views of the left hand were obtained. Ring is noted on the base of the 4th finger. No fracture or dislocation. No soft tissue gas or foreign body otherwise. Joint spaces are maintained. Alignment is anatomic. Impression: Negative left hand. Dictated by: Dictated on workstation # [id number]
[2021-08-13] MEDS ORDERED: AMOX1TAB12 PO (16:25)
[2021-08-13 16:41] VITALS: BP 142/73
== END 2021-08-13 16:41 | disposition home or self-care (01) ==
LOC: EDUNIT# 15:09 → ER FS 15:11
DX: S61.452A Open bite of left hand, initial encounter (principal); S21.052A Open bite of left breast, initial encounter; S20.01XA Contusion of right breast, initial encounter; W54.0XXA Bitten by dog, initial encounter
CPT/HCPCS: 73130

== ENCOUNTER → 2021-09-15 | Outpatient (CLI) | payer MEDICAID ==
[~2021-09-15] MED LIST changes: +AMOX1TAB12 PO
[2021-09-15 13:23] LABS: BILIRUBIN,URINE NEGATIVE (NEGATIVE); CLARITY,URINE CLOUDY; COLOR,URINE YELLOW; GLUCOSE, URINE (UA) NEGATIVE (NEGATIVE); KETONES,URINE NEGATIVE (NEGATIVE); LEUKOCYTE ESTERASE ,URINE TRACE (NEGATIVE); NITRITE,URINE NEGATIVE (NEGATIVE); PROTEIN,URINE NEGATIVE (NEGATIVE)
[2021-09-15 13:30] LABS: BACTERIA,URINE TRACE /HPF; CALCIUM OXALATE CRYSTALS,UR FEW /LPF; SQUAMOUS EPITHELIAL CELL,UR 0-2 /HPF; WBC,URINE 0-2 /HPF
== END ==
LOC: LAB FS 13:07
PROVIDERS: ATTEND Registered Nurse Emergency
DX: O21.9 Vomiting of pregnancy, unspecified (principal); O26.899 Other specified pregnancy related conditions, unspecified trimester; R30.9 Painful micturition, unspecified; Z3A.00 Weeks of gestation of pregnancy not specified
CPT/HCPCS: 81000; 87088

== ENCOUNTER 2022-01-09 13:39 | Outpatient (CLI) | payer MEDICAID ==
[~2022-01-09] VITALS: Ht 157.5 cm; Wt 88.2 kg
[2022-01-09 16:44] VITALS: BP 118/81
[2022-01-09 20:10] VITALS: BP 128/80
[2022-01-09 20:35] VITALS: BP 128/80
--- NOTE | 2022-01-09 23:24 | OB Triage Report ---
Standard Progress Note Progress Notes/Assess & Plan Time Seen by a Provider: 00:00 (pt not seen by provider) Expected Date of Delivery: Feb 03, 2022 Gestational Age in Weeks: 36 Gestational Age in Days: 3 LMP/TAIWO Comment: 04/29/2021 TAIWO: 02/03/22 Progress/Assessment & Plan Patient is with IUP at 36w3d. Presented for contractions. SVE remained unchanged at 4/50/hi throughout 4 hour period of evaluation in triage. irregular contraction pattern noted q 4-20 minutes, and mild per pt report. Declined analgesia. FHT reactive throughout period of observation in triage. Vital signs wnl. Patient reported improvement in pain, and desired discharge home. Pt was discharged home in stable medical condition with return precautions. Final Diagnosis Intrauterine at 36w3d Contractions TRIPP PEARCE MD Jan 09, 2022 23:24
== END 2022-01-09 20:35 | disposition home or self-care (01) ==
LOC: WSo 13:39 → LDRP 13:39 → WSo 20:35
PROVIDERS: ATTEND Obstetrics & Gynecology
DX: O62.9 Abnormality of forces of labor, unspecified (principal); Z3A.00 Weeks of gestation of pregnancy not specified

== ENCOUNTER 2022-01-17 14:30 | Inpatient (IN) | payer MEDICAID ==
[~2022-01-17] VITALS: Ht 157.5 cm; Wt 89.3 kg
[2022-01-17] VITALS (8 sets, daily range): BP systolic 113–136; BP diastolic 66–79
[2022-01-17] MEDS ORDERED: LIDOCAINE UROJET 2% GEL 10 ML PKG TOP ONE (15:00)
[2022-01-17] MEDS: D5 LR IV SOLUTION 1,000 ML IV SCH ×2 (15:10→22:52)
[2022-01-17 15:25] LABS: BASOPHILS % (AUTO) 0 % (0-10); EOSINOPHILS % (AUTO) 0 % (0-10); HEMATOCRIT 36 % (35-52); HEMOGLOBIN 12.3 g/dL (11.5-16.0); LYMPHOCYTES # (AUTO) 1.2 X 10^3 (1.0-4.0); LYMPHOCYTES % (AUTO) 17 % (12-44); MEAN CORPUSCULAR HEMOGLOBIN 31 pg (25-34); MEAN CORPUSCULAR HGB CONC 34 g/dL (32-36); MEAN CORPUSCULAR VOLUME 91 fL (80-99); MEAN PLATELET VOLUME 12.8 fL (9.0-12.2); MONOCYTES # (AUTO) 0.5 X 10^3 (0.0-1.0); MONOCYTES % (AUTO) 7 % (0-12); NEUTROPHILS # (AUTO) 5.4 X 10^3 (1.8-7.8); NEUTROPHILS % (AUTO) 75 % (42-75); PLATELET COUNT 125 10^3/uL (130-400); WHITE BLOOD COUNT 7.2 10^3/uL (4.3-11.0)
[2022-01-17] MEDS ORDERED: NS IV 500 ML 1,000 ML IV SCH (15:45)
[2022-01-17] MEDS ORDERED: FLU QUADRIvalent (6 months+) 60 mcg/0.5 ml 2022-23 (Fluzone) IM ONE (18:15)
[2022-01-17 20:46] LABS: BILIRUBIN,URINE NEGATIVE (NEGATIVE); CLARITY,URINE CLEAR; COLOR,URINE YELLOW; GLUCOSE, URINE (UA) NEGATIVE (NEGATIVE); KETONES,URINE TRACE (NEGATIVE); LEUKOCYTE ESTERASE ,URINE 1+ (NEGATIVE); NITRITE,URINE NEGATIVE (NEGATIVE); PH,URINE 6.5 (5-9); PROTEIN,URINE NEGATIVE (NEGATIVE)
[2022-01-17 21:03] LABS: BACTERIA,URINE FEW /HPF; CALCIUM OXALATE CRYSTALS,UR RARE /LPF
[2022-01-17] MEDS ORDERED: CATHETER FLUSH 10 ML SYR IV SCH (22:00)
[2022-01-18] VITALS (45 sets, daily range): BP systolic 106–152; BP diastolic 6–95
[2022-01-18] MEDS: D5 LR IV SOLUTION 1,000 ML IV SCH ×2 (06:25→14:16)
[2022-01-18] MEDS ORDERED: LACTATED RINGERS 1,000 ML IV ONE ×2 (07:30→09:30)
--- NOTE | 2022-01-18 08:04 | History & Physical-OB ---
OB - Chief Complaint & HPI Date/Time Date of Admission: Date of Admission: Jan 17, 2022 at 14:30 Date seen by a Provider: Jan 18, 2022 Time Seen by a Provider: 07:15 Chief Complaint/History OB-Reason for Admission/Chief: Onset of Labor Hx : 3 Hx Para: 2 Expected Date of Delivery: Feb 03, 2022 Gestational Age in Weeks: 37 Gestational Age in Days: 4 Admission Nurse Assessment Rev: Yes Allergies and Home Medications Allergies Coded Allergies: fentanyl (Unverified Allergy, Intermediate, PROFUSE VOMITING, 04/19/18) Patient Home Medication List Home Medication List Reviewed: Yes Acetaminophen (Acetaminophen) 500 Mg Tablet, 1,000 MG PO Q8HR Prescribed by: LUZ FREEDMAN on 11/15/19 1017 Ondansetron (Ondansetron Odt) 4 Mg Tab.rapdis, 4 MG PO Q6H PRN for NAUSEA/VOMITING Prescribed by: KRISTI MACE on 09/13/20 1428 OB - History Hx of Present Care: Yes Ultrasounds: Normal mid trimester US Obstetrical Complications: None Medical Complications: None Delivery History Hx Blood Disorders: No Adverse Rxn to Tranfusion: No (N/A) Patient Past Medical History previously healthy Social History/Family History 2nd Hand Smoke Exposure: No Immunizations Influenza Vaccine Up-to-Date: No; Not Current First/Initial COVID19 Vaccine: 2020 Second COVID19 Vaccination: 2020 COVID19 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: [employer] Hepatitis A: No Hepatitis B: No OB - Admission Exam Physical Exam Vitals: Vital Signs 01/18/22 01/18/22 04:32 07:25 Temp 36.4 Pulse 90 Resp 18 B/P (MAP) 125/80 (95) Pulse Ox 97 O2 Delivery Room Air HEENT: NCAT Heart: Rhythm Normal Lungs: Clear Abdomen: Gravid Extremities: Normal Reflexes: Normal Cervical Dilatation: 6cm Effacement: 75% Station: 0 Membranes: Intact Heart Rate: 130's Accelerations: Accelerations Present Decelerations: No Decelerations Short Term Variability: Present Loan Documents Closer Variability: Average (6-25) Contractions on Admission: 6-10 Minutes Apart Intensity: Mild Labs Laboratory Tests Test 01/17/22 15:00 01/17/22 15:10 Range/Units Urine Color YELLOW Urine Clarity CLEAR Urine pH 6.5 5-9 Urine Specific [place] 1.020 1.016-1.022 Urine Protein NEGATIVE NEGATIVE Urine Glucose (UA) NEGATIVE NEGATIVE Urine Ketones TRACE H NEGATIVE Urine Nitrite NEGATIVE NEGATIVE Urine Bilirubin NEGATIVE NEGATIVE Urine Urobilinogen 1.0 < = 1.0 MG/DL Urine Leukocyte Esterase 1+ H NEGATIVE Urine RBC (Auto) 3+ H NEGATIVE Urine RBC NONE /HPF Urine WBC 2-5 /HPF Urine Squamous Epithelial Cells NONE /HPF Urine Renal Epithelial Cells NONE /HPF Urine Crystals PRESENT H /LPF Urine Calcium Oxalate Crystals RARE H /LPF Urine Bacteria FEW H /HPF Urine Casts NONE /LPF Urine Mucus NEGATIVE /LPF Urine Culture Indicated YES White Blood Count 7.2 4.3-11.0 10^3/uL Red Blood Count 3.99 3.80-5.11 10^6/uL Hemoglobin 12.3 11.5-16.0 g/dL Hematocrit 36 35-52 % Mean Corpuscular Volume 91 80-99 fL Mean Corpuscular Hemoglobin 31 25-34 pg Mean Corpuscular Hemoglobin Concent 34 32-36 g/dL Red Cell Distribution Width 14.3 10.0-14.5 % Platelet Count 125 L 130-400 10^3/uL Mean Platelet Volume 12.8 H 9.0-12.2 fL Immature Granulocyte % (Auto) 0 % Neutrophils (%) (Auto) 75 42-75 % Lymphocytes (%) (Auto) 17 12-44 % Monocytes (%) (Auto) 7 0-12 % Eosinophils (%) (Auto) 0 0-10 % Basophils (%) (Auto) 0 0-10 % Neutrophils # (Auto) 5.4 1.8-7.8 X 10^3 Lymphocytes # (Auto) 1.2 1.0-4.0 X 10^3 Monocytes # (Auto) 0.5 0.0-1.0 X 10^3 Eosinophils # (Auto) 0.0 0.0-0.3 10^3/uL Basophils # (Auto) 0.0 0.0-0.1 10^3/uL Immature Granulocyte # (Auto) 0.0 0.0-0.1 10^3/uL Syphilis Serology Non-Reactive Non-Reactive OB - Assessment/Plan/Diagnosis Assessment Assessment: active labor Admission Dx 26 yo @ 37.4 Active labor GBS neg Admission Status: Inpatient Order (span 2 midnights) Reason for Inpatient Admission: 37 week IUP w/ Advanced cervical dilatation active labor GBS neg Plan Plan: Expectant Management Other Plan Will augment labor with AROM if no active progress PALOMA SUAREZ DO Jan 18, 2022 08:04
[2022-01-18] MEDS ORDERED: fentaNYL 2 mcg/ml BUPIVA 0.125 0 ML ONE (08:26)
[2022-01-18] MEDS ORDERED: LIDOCAINE PF 2% 5 ML (XYLOCAINE) VIAL ONE ×2 (08:59→14:38)
[2022-01-18] MEDS ORDERED: CATHETER FLUSH 10 ML SYR IV PRN (09:30)
[2022-01-18] MEDS ORDERED: NALOXONE 0.4 MG/ML 1 ML (NARCAN) VIAL IV PRN ×2 (09:30→15:15)
[2022-01-18] MEDS ORDERED: BUPIVACAINE 0.75% INJECTION 16.7 ML in NS (IVPB) 83.3 ML IV SCH (09:30)
[2022-01-18] MEDS ORDERED: OXYTOCIN PRE-MIX DRIP 500 ML IV SCH ×2 (10:45→15:15)
[2022-01-18] MEDS ORDERED: ONDANSETRON 4 MG/2 ML (SDV) Z0FRAN IVP PRN (13:00)
[2022-01-18] MEDS ORDERED: WITCH HAZEL(TUCKS) 40 EA JAR TOP PRN (15:15)
[2022-01-18] MEDS ORDERED: DIBUCAINE 1% OINTMENT 30 GM TUBE TOP PRN (15:15)
[2022-01-18] MEDS ORDERED: BENZOCAINE/MENTHOL (DERMOPLAST) 56 ML CAN TP PRN (15:15)
[2022-01-18] MEDS ORDERED: TETANUS,DIPTH,PERTUSS P/F (BOOSTRIX) 0.5 ML VIAL IM ONE (15:15)
[2022-01-18] MEDS ORDERED: MEASLES,MUMPS,RUBELLA 1 EA INJ SQ ONE (15:15)
--- NOTE | 2022-01-18 15:18 | OB Labor & Delivery Record ---
L&D History Date of Service Date of Service: Jan 18, 2022 History Expected Date of Delivery: Feb 03, 2022 Gestational Age in Weeks: 37 Hx : 3 Hx Para: 2 Complications Events: Routine care Operative Indications (Cesarea: N/A-Vaginal Delivery Intrapartal Events: None L&D Stage1 Stage One Onset of Labor - Date: Jan 18, 2022 Monitors and Tracing Monitor Mode: External Heart Rate: 135 Station: 0 Senior Technical Manager Variability: Average (6-10) Short Term Variability: Present Presentation: Vertex Vital Signs VS - Last 72 Hours, by Label 01/17/22 01/17/22 01/17/22 01/17/22 14:57 15:00 16:30 17:00 Temp 36.4 36.4 Pulse 94 94 92 93 Resp 18 18 18 18 B/P (MAP) 136/78 (97) 116/72 (87) 113/67 (82) Pulse Ox 99 98 98 O2 Delivery Room Air Room Air Room Air Room Air 01/17/22 01/17/22 01/17/22 01/17/22 17:30 19:00 19:18 22:51 Temp 36.4 36.4 Pulse 91 96 97 94 Resp 18 18 20 18 B/P (MAP) 116/66 (83) 129/75 (93) 129/79 (96) 119/72 (88) Pulse Ox 98 97 97 O2 Delivery Room Air Room Air Room Air Room Air 01/18/22 01/18/22 01/18/22 01/18/22 04:32 07:25 08:05 08:35 Temp 36.2 36.4 36.5 Pulse 103 90 88 88 Resp 16 18 18 18 B/P (MAP) 127/73 (91) 125/80 (95) 128/75 (92) 116/71 (86) Pulse Ox 97 O2 Delivery Room Air Room Air Room Air Room Air 01/18/22 01/18/22 01/18/22 01/18/22 09:00 09:05 09:10 09:15 Temp 36.4 Pulse 90 94 86 83 Resp 18 18 18 18 B/P (MAP) 126/76 (93) 128/80 (96) 128/81 (97) 119/72 (88) Pulse Ox 97 97 98 100 O2 Delivery Room Air Room Air Room Air Room Air 01/18/22 01/18/22 01/18/22 01/18/22 09:20 09:25 09:30 09:35 Pulse 88 83 86 87 Resp 18 18 18 18 B/P (MAP) 119/75 (90) 113/70 (84) 124/66 (85) 121/67 (85) Pulse Ox 97 97 97 96 O2 Delivery Room Air Room Air Room Air Room Air 01/18/22 01/18/22 01/18/22 01/18/22 09:40 09:45 10:00 10:15 Temp 36.4 Pulse 88 86 86 86 Resp 18 18 18 18 B/P (MAP) 117/67 (84) 117/65 (82) 120/73 (89) 124/70 (88) Pulse Ox 96 97 97 97 O2 Delivery Room Air Room Air Room Air Room Air 01/18/22 01/18/22 01/18/22 01/18/22 10:45 11:00 11:15 11:30 Temp 36.5 Pulse 86 86 85 87 Resp 18 18 18 18 B/P (MAP) 109/58 (75) 107/56 (73) 110/57 (74) 106/59 (75) Pulse Ox 97 97 97 97 O2 Delivery Room Air Room Air Room Air Room Air 01/18/22 01/18/22 01/18/22 01/18/22 11:45 12:00 12:15 12:30 Temp 36.4 Pulse 86 82 90 93 Resp 18 18 18 18 B/P (MAP) 110/63 (79) 107/57 (74) 144/88 (106) 143/87 (105) Pulse Ox 98 97 98 100 O2 Delivery Room Air Room Air Room Air Room Air 01/18/22 01/18/22 01/18/22 01/18/22 13:00 13:15 13:30 13:45 Temp 36.5 Pulse 96 109 101 94 Resp 18 18 18 18 B/P (MAP) 126/64 (84) 152/77 (102) 147/87 (107) 139/81 (100) Pulse Ox 97 96 96 96 O2 Delivery Room Air Room Air Room Air Room Air Rupture of Membranes Spontaneous Ruture of Membrane: No Amniotic Membrane Rupture Time: 0711 Amniotic Membrane Fluid Desc.: Clear Vaginal Bleeding Description: Normal Show Induction/Anesthesia Epidural Cath Placement - Time: 916 Progress/Notes Patient admitted in active labor. AROM performed this AM. Pitocin augmentation used due to dysfunctional contraction pattern. Epidural placed and she progressed to complete and + 2 station with max dose of 6 mu pitocin augmentation. L&D Stage2 Monitors and Tracing Monitor Mode: External Heart Rate: 135 Monitor Decelerations: Variable Senior Technical Manager Variability: Average (6-10) Position: Right Occiput Anterior Presentation: Vertex Cord Descript/Complications Cord Vessel Description: 3 Vessels Delivery Type Delivery Method: Spontaneous Vaginal Anterior Shoulder: Left Episiotomy/Perineal Laceration Laceraction(s)/Extensions: No Condition of Delivery 1 minute Comment: 9 5 minute Comment: 9 Notes Live male weight 6lbs 5 oz. Condition of Condition of : Living Exam: No Observed Abnormalities Resuscitation Resuscitation: N/A - Spontaneous Resp L&D Stage3 Stage Three Stage III Date: Jan 18, 2022 Pictocin Pitocin Administration mu/min: 6 Pitocin ml/hr: 6 Pitocin Administration Comment: Pitocin started per DR Suarez's verbal order and protocol Placenta Delivery Placenta Delivery: Spontaneous Delivery Summary Summary Estimated blood loss (mL): 250 Attending at delivery: Paloma Suarez DO Condition of Delivery Examined: Cervix Examined, Uterus Explored Post Hemorrhage: No Condition of Mother stable Condition of Infant (s) stable PALOMA SUAREZ DO Jan 18, 2022 15:18
[2022-01-18] MEDS: IBUPROFEN 600 MG (MOTRIN) TAB PO SCH ×2 (18:53→23:45)
[2022-01-18] MEDS: DOCUSATE SODIUM 100 MG (COLACE) CAP PO SCH (19:57)
[2022-01-18] MEDS ORDERED: CATHETER FLUSH 10 ML SYR IV SCH (22:00)
[2022-01-19 05:05] VITALS: BP 123/69
[2022-01-19] MEDS: IBUPROFEN 600 MG (MOTRIN) TAB PO SCH ×2 (05:07→14:19)
[2022-01-19 06:20] LABS: BASOPHILS % (AUTO) 0 % (0-10); EOSINOPHILS % (AUTO) 0 % (0-10); HEMOGLOBIN 10.5 g/dL (11.5-16.0); LYMPHOCYTES % (AUTO) 17 % (12-44); MONOCYTES # (AUTO) 0.6 10^3/uL (0.0-1.0)
[2022-01-19 06:22] LABS: HEMATOCRIT 31 % (35-52); LYMPHOCYTES # (AUTO) 1.6 10^3/uL (1.0-4.0); MEAN CORPUSCULAR HEMOGLOBIN 31 pg (25-34); MEAN CORPUSCULAR HGB CONC 34 g/dL (32-36); MEAN CORPUSCULAR VOLUME 92 fL (80-99); MEAN PLATELET VOLUME 13.4 fL (9.0-12.2); MONOCYTES % (AUTO) 7 % (0-12); NEUTROPHILS % (AUTO) 76 % (42-75); PLATELET COUNT 109 10^3/uL (130-400); WHITE BLOOD COUNT 9.2 10^3/uL (4.3-11.0)
[2022-01-19] MEDS ORDERED: PRENATAL VITAMIN 1 EA TAB PO SCH (07:00)
--- NOTE | 2022-01-19 08:28 | Postpartum Progress Note ---
Note Note Day # 1 Subjective: Patient is without complaints. Ambulating, voiding. Tolerating a regular diet without nausea or vomiting. Normal lochia. Pain is well controlled with oral pain medications. Objective: Physical Exam: General - Alert and oriented, no apparent distress Abdomen - Soft, appropriately tender to palpation, non-distended, fundus firm at umbilicus Extremities - no edema, negative Nica's bilaterally Assessment: PPD 1 NVD Acute blood loss anemia Plan: Routine care. Encourage breast feeding. Encourage ambulation. Ferrous sulfate supplementation. Plan for discharge today Vitals - Labs Vital Signs - I&O Vital Signs Date Time Temp Pulse Resp B/P (MAP) Pulse Ox O2 Delivery O2 Flow Rate FiO2 01/19/22 05:05 36.1 81 18 123/69 (87) 99 Room Air 01/18/22 23:45 36.5 79 20 133/74 (93) 98 Room Air 01/18/22 19:58 36.6 91 22 127/74 (91) 98 Room Air 01/18/22 17:40 83 18 139/77 (97) Room Air 01/18/22 17:25 92 18 146/76 (99) Room Air 01/18/22 17:10 81 18 143/72 (95) Room Air 01/18/22 16:55 82 18 139/77 (97) Room Air 01/18/22 16:40 86 18 150/95 (113) Room Air 01/18/22 16:25 78 18 146/86 (106) Room Air 01/18/22 16:10 85 18 141/84 (103) Room Air 01/18/22 15:55 83 18 144/91 (108) Room Air 01/18/22 15:40 95 18 143/80 (101) Room Air 01/18/22 15:25 91 18 129/72 (91) Room Air 01/18/22 15:10 36.1 91 18 129/72 (91) Room Air 01/18/22 15:00 115 18 118/70 (86) 97 Room Air 01/18/22 14:45 96 18 136/84 (101) 97 Room Air 01/18/22 14:15 94 18 140/88 (105) 96 Room Air 01/18/22 14:00 36.5 94 18 141/84 (103) 96 Room Air 01/18/22 13:45 94 18 139/81 (100) 96 Room Air 01/18/22 13:30 101 18 147/87 (107) 96 Room Air 01/18/22 13:15 109 18 152/77 (102) 96 Room Air 01/18/22 13:00 36.5 96 18 126/64 (84) 97 Room Air 01/18/22 12:30 93 18 143/87 (105) 100 Room Air 01/18/22 12:15 90 18 144/88 (106) 98 Room Air 01/18/22 12:00 36.4 82 18 107/57 (74) 97 Room Air 01/18/22 11:45 86 18 110/63 (79) 98 Room Air 01/18/22 11:30 87 18 106/59 (75) 97 Room Air 01/18/22 11:15 85 18 110/57 (74) 97 Room Air 01/18/22 11:00 36.5 86 18 107/56 (73) 97 Room Air 01/18/22 10:45 86 18 109/58 (75) 97 Room Air 01/18/22 10:15 86 18 124/70 (88) 97 Room Air 01/18/22 10:00 36.4 86 18 120/73 (89) 97 Room Air 01/18/22 09:45 86 18 117/65 (82) 97 Room Air 01/18/22 09:40 88 18 117/67 (84) 96 Room Air 01/18/22 09:35 87 18 121/67 (85) 96 Room Air 01/18/22 09:30 86 18 124/66 (85) 97 Room Air 01/18/22 09:25 83 18 113/70 (84) 97 Room Air 01/18/22 09:20 88 18 119/75 (90) 97 Room Air 01/18/22 09:15 83 18 119/72 (88) 100 Room Air 01/18/22 09:10 86 18 128/81 (97) 98 Room Air 01/18/22 09:05 94 18 128/80 (96) 97 Room Air 01/18/22 09:00 36.4 90 18 126/76 (93) 97 Room Air 01/18/22 08:35 88 18 116/71 (86) Room Air I & O 01/19/22 07:00 Intake Total 1200 ml Balance 1200 ml Labs Laboratory Tests 01/19/22 06:06: White Blood Count 9.2, Red Blood Count 3.40L, Hemoglobin 10.5L, Hematocrit 31L, Mean Corpuscular Volume 92, Mean Corpuscular Hemoglobin 31, Mean Corpuscular Hemoglobin Concent 34, Red Cell Distribution Width 14.1, Platelet Count 109L, Mean Platelet Volume 13.4H, Immature Granulocyte % (Auto) 0, Neutrophils (%) (Auto) 76H, Lymphocytes (%) (Auto) 17, Monocytes (%) (Auto) 7, Eosinophils (%) (Auto) 0, Basophils (%) (Auto) 0, Neutrophils # (Auto) 7.0, Lymphocytes # (Auto) 1.6, Monocytes # (Auto) 0.6, Eosinophils # (Auto) 0.0, Basophils # (Auto) 0.0, Immature Granulocyte # (Auto) 0.0, Percent Immature Platelet Fraction 15.4H Microbiology 01/17/22 Urine Culture - Preliminary, Resulted Culture In Progress PALOMA SUAREZ DO Jan 19, 2022 08:28
--- NOTE | 2022-01-19 08:30 | Discharge Inst-Women's Service ---
Discharge Inst-Women's Serv Depart Medication/Instructions New, Converted or Re-Newed RX: Transmitted to Pharmacy Final Diagnosis PPD 1 NVD Problems Reviewed?: Yes Consults/Follow Up Additional Follow Up: Yes Orders/Referrals Dr. Suarez in 6 weeks Activity Activity: Activity as Tolerated Driving Instructions: No Driving for 1 Week NO SMOKING: NO SMOKING Nothing Inside Vagina: No Douching, No [place], No Tampons Diet Discharge Diet: No Restrictions Symptoms to Report to : Bleeding Excessive, Pain Increased, Fever Over 101 Degrees F, Vaginal Bleeding Increase, Questions/Concerns For Any Problems or Questions: Contact Your Physician PALOMA SUAREZ DO Jan 19, 2022 08:30
[2022-01-19] MEDS ORDERED: IBUP-844 PO (08:32)
[2022-01-19] MEDS ORDERED: ACET-93 PO (08:32)
[2022-01-19] MEDS ORDERED: DOCU100C37 PO (08:32)
[2022-01-19] MEDS ORDERED: FERR325T24 PO (08:32)
[2022-01-19] MEDS ORDERED: PNV1TABL67 PO (08:32)
[2022-01-19] MEDS ORDERED: FERROUS SULF 325 MG (IRON) TAB PO SCH (09:00)
[2022-01-19 09:46] VITALS: BP 126/81
[2022-01-19] MEDS: DOCUSATE SODIUM 100 MG (COLACE) CAP PO SCH (09:48)
[2022-01-19 14:27] VITALS: BP 126/84
== END 2022-01-19 16:55 | disposition home or self-care (01) | DRG 806 ==
LOC: LDRP 14:30
PROVIDERS: ADMIT Obstetrics & Gynecology; ATTEND Obstetrics & Gynecology
PROC: 10E0XZZ Delivery of Products of Conception, External Approach (ICD-10-PCS; principal; 2022-01-18)
PROC: 10907ZC Drainage of Amniotic Fluid, Therapeutic from Products of Conception, Via Natural or Artificial Opening (ICD-10-PCS; 2022-01-18)
DX: O90.81 Anemia of the puerperium (principal); D62 Acute posthemorrhagic anemia; Z37.0 Single live birth; Z3A.37 37 weeks gestation of pregnancy
CPT/HCPCS: 36415; 81000; 85025; 86780; 86850; 86900; 86901; 87088

== ENCOUNTER 2022-08-15 10:53 | Emergency (ER) | payer MEDICAID ==
[~2022-08-15 10:53] MED LIST changes: +DOCU100C37 PO; +FERR325T24 PO; +PNV1TABL67 PO
--- NOTE | 2022-08-15 11:03 | ED Back Pain ---
General Chief Complaint: Back Problems Stated Complaint: RT SIDE BACK PAIN History of Present Illness Date Seen by Provider: Aug 15, 2022 Time Seen by Provider: 10:59 Initial Comments 27-year-old female is here with complaints of right-sided posterior rib pain which has been going on for 2 weeks after she had an accident where her child was having a tantrum and kicked her and she fell back and fell on the floor hurting her right side on her back. Soon after she developed a bronchitis with severe coughing which exacerbated the right-sided rib pain. Bronchitis has resolved, but pt still has pain which is increased when she breathes in deeply. Pt has used ibuprofen and ity is not helping with the pain. Denies SOB, chest pain, nausea, vomiting. Allergies and Home Medications Allergies Coded Allergies: fentanyl (Unverified Allergy, Intermediate, PROFUSE VOMITING, 04/19/18) Patient Home Medication List Home Medication List Reviewed: Yes Acetaminophen (Acetaminophen) 500 Mg Tablet, 1,000 MG PO Q8HR Prescribed by: PALOMA SUAREZ on 01/19/22831 Docusate Sodium (Docusate Sodium) 100 Mg Capsule, 100 MG PO BID PRN for CONSTIPA TION-1ST LINE Prescribed by: PALOMA SUAREZ on 01/19/22831 Ferrous Sulfate (Ferosul) 325 Mg (65 Mg Iron) Tablet, 325 MG PO DAILY Prescribed by: PALOMA SUAREZ on 01/19/22831 Ibuprofen (Ibu) 600 Mg Tablet, 600 MG PO Q6H Prescribed by: PALOMA SUAREZ on 01/19/22831 Pnv with Ca,No.72/Iron/FA (Pnv Plus Multivit Tab) 27 Mg Iron-1 Mg Tablet, 1 EA PO DAILY@0700 Prescribed by: PALOMA SUAREZ on 01/19/22831 Review of Systems Constitutional: no symptoms reported EENTM: no symptoms reported Respiratory: no symptoms reported Cardiovascular: no symptoms reported Gastrointestinal: no symptoms reported Genitourinary: no symptoms reported Musculoskeletal: see HPI, back pain Skin: no symptoms reported Psychiatric/Neurological: No Symptoms Reported Past Bmwwgvo-Xgrnmi-Qrront Hx Immunizations Up To Date PED Vaccines UTD: Yes First/Initial COVID19 Vaccinat: 2020 Second COVID19 Vaccination Cassius: 2020 Seasonal Allergies Seasonal Allergies: No Past Medical History Surgeries: Yes (breast biopsy) Gallbladder Respiratory: No Cardiac: No Neurological: No Headaches /Migraines Reproductive Disorders: No Sexually Transmitted Disease: No HIV/AIDS: No Genitourinary: No Gastrointestinal: Yes (gallbladder removed) Gastroesophageal Reflux, Gall Bladder Disease Musculoskeletal: No Endocrine: No HEENT: No Loss of Vision: Denies Hearing Impairment: Denies Cancer: No Psychosocial: No Integumentary: No Blood Disorders: No Adverse Reaction/Blood Tranf: No (N/A) Family Medical History FHx: diabetes mellitus 19 MOTHER No Pertinent Family Hx Physical Exam Vital Signs Vital Signs - First Documented 08/15/22 11:05 Temp 35.9 Pulse 91 Resp 16 B/P (MAP) 148/105 (119) Pulse Ox 99 O2 Delivery Room Air Capillary Refill : Height, Weight, BMI Height: 5'2.00" Weight: 153lbs. 0.0oz. [id number]; 35.99 BMI Method:Stated General Appearance: No Apparent Distress, WD/WN HEENT: PERRL/EOMI Neck: Full Range of Motion, Normal Inspection, Non Tender, Supple Cardiovascular: Regular Rate, Rhythm Respiratory: Chest Non Tender, Lungs Clear, Normal Breath Sounds, No Accessory Muscle Use Gastrointestinal: Non Tender, Soft Back: Normal Inspection, No CVA Tenderness, No Vertebral Tenderness, Muscle Spasm (Right-sided back: Muscle spasms present, tenderness around the area of the seventh, eighth, ninth posterior ribs. No bruising seen) Extremity: Normal Range of Motion Neurologic/Psychiatric: Alert, Oriented x3, No Motor/Sensory Deficits Skin: Normal Color Procedures/Interventions Suture Size: 4-0 Progress/Results/Core Measures Results/Orders My Orders Orders - URIEL CHISHOLM MD Ribs/Unilateral With Chest (08/15/22 11:37) Ketorolac Injection (Toradol Injection) (08/15/22 11:45) Medications Given in ED Current Medications Medications Dose Ordered Sig/Breanna Route Start Time Stop Time Status Last Admin Dose Admin Ketorolac Tromethamine 30 mg ONCE ONCE IVP 08/15/22 11:45 08/15/22 11:46 UNV 08/15/22 11:48 30 MG Vital Signs/I&O 08/15/22 11:05 Temp 35.9 Pulse 91 Resp 16 B/P (MAP) 148/105 (119) Pulse Ox 99 O2 Delivery Room Air Progress Progress Note : Progress Note 1. RIGHT SIDED BACK MUSCLE SPASM: - XR RIBS/ CHEST: no fractures. lungs normal. - Toradol im given in ER. Pain improved with this. -Rib fracture, lung injury such as pneumothorax has been ruled out with an x-ray - Flexeril prescription given. Advised not to drive if taking Flexeril -Follow-up with PCP within the next 7 days -Advise heat application, gentle massage, gentle stretching of the back muscle -The patient was seen in the ED, and treated appropriately to presentation at a specific point in time. Patient is informed that there is a possibility that disease and illness can evolve and change in acuity rapidly or slowly after patient is discharged from the ER. Precautionary advice given to the patient for immediate return to ER if symptoms worsen or do not resolve, and to seek e mergency care sooner rather than later. Pt also advised on the importance of PCP follow up and compliance with management and follow up plan with PCP and/or specialist, as this is part of the management plan. Pt verbally expressed understanding. Diagnostic Imaging Diagonstic Imaging: Xray Plain Films/CT/US/NM/MRI: other Comments [facility], [place] NAME: HIMA VERDUGO [facility] REC#: [id number] PT STATUS: REG ER : 1995 PHYSICIAN: URIEL CHISHOLM MD ADMIT DATE: 08/15/22/ER FS Signed Date of Exam:08/15/22 RIBS/UNILATERAL WITH CHEST EXAMINATION: Rib radiograph TECHNIQUE: AP and oblique views of the right ribs obtained. HISTORY: right side posterior rib pain/ injury COMPARISON: None available. FINDINGS: No rib fracture is seen. Lungs are clear. Cardiac silhouette border vascularity are within normal limits. No pleural effusion or pneumothorax. IMPRESSION: No acute rib fracture. No acute chest findings. Dictated by: Dictated on workstation # [id number] Dict: 08/15/22 1206 Trans: 08/15/22 120 [facility] [id number] Interpreted by: DILCIA CORONADO DO Electronically signed by: DILCIA CORONADO DO 08/15/22 1207 Departure Impression Primary Impression: Muscle spasm of back Disposition: HOME, SELF-CARE Condition: Improved Departure-Patient Inst. Referrals: PAMELA ZHAO MD (PCP/Family) Primary Care Physician Patient Instructions: Back Exercises, Back Flexion Stretching Exercises, Muscle Spasms (DC), Using Heat for Pain Add. Discharge Instructions: - Flexeril prescription given. Advised not to drive if taking Flexeril -Follow-up with PCP within the next 7 days -Advise heat application, gentle massage, gentle stretching of the back muscle All discharge instructions reviewed with patient and/or family. Voiced understanding. Scripts Cyclobenzaprine HCl (Cyclobenzaprine HCl ER) 15 Mg Cap.er.24h 15 MG PO HS for 5 Days, #5 CAP Prov: URIEL CHISHOLM MD 08/15/22 URIEL CHISHOLM MD Aug 15, 2022 11:03
[2022-08-15 11:05] VITALS: BP 148/105
[2022-08-15] MEDS ORDERED: KETOROLAC 30 MG/ML VIAL IVP ONE (11:45)
[2022-08-15] MEDS ORDERED: KETOROLAC 30 MG/ML VIAL ONE (11:46)
--- NOTE | 2022-08-15 12:08 | Diagnostic Imaging Report ---
EXAMINATION: Rib radiograph TECHNIQUE: AP and oblique views of the right ribs obtained. HISTORY: right side posterior rib pain/ injury COMPARISON: None available. FINDINGS: No rib fracture is seen. Lungs are clear. Cardiac silhouette border vascularity are within normal limits. No pleural effusion or pneumothorax. IMPRESSION: No acute rib fracture. No acute chest findings. Dictated by: Dictated on workstation # [id number]
[2022-08-15] MEDS ORDERED: CYCL15CA23 PO (12:27)
== END 2022-08-15 12:30 | disposition home or self-care (01) ==
LOC: EDUNIT# 10:53 → ER FS 10:55
DX: M62.830 Muscle spasm of back (principal)
CPT/HCPCS: 71101

== ENCOUNTER → 2022-12-11 | Outpatient (CLI) | payer MEDICAID ==
[~2022-12-11] MED LIST changes: +CYCL15CA23 PO
== END ==
LOC: CARD 10:13
PROVIDERS: ATTEND Family Medicine
DX: I34.0 Nonrheumatic mitral (valve) insufficiency (principal)
CPT/HCPCS: 93306

== ENCOUNTER → 2022-12-29 | Outpatient (CLI) | payer MEDICAID | LOC: LABNPT 10:37 | PROVIDERS: ATTEND Obstetrics & Gynecology | DX: O13.9 Gestational [pregnancy-induced] hypertension without significant proteinuria, unspecified trimester (principal); Z3A.00 Weeks of gestation of pregnancy not specified | CPT/HCPCS: 82570; 84156 ==

== ENCOUNTER 2023-01-03 09:10 | Outpatient (RCR) | payer MEDICAID ==
[2023-01-03 10:45] LABS: BASOPHILS % (AUTO) 0 % (0-10); EOSINOPHILS # (AUTO) 0.1 10^3/uL (0.0-0.3); EOSINOPHILS % (AUTO) 1 % (0-10); HEMATOCRIT 39 % (35-52); HEMOGLOBIN 13.3 g/dL (11.5-16.0); LYMPHOCYTES # (AUTO) 1.5 10^3/uL (1.0-4.0); LYMPHOCYTES % (AUTO) 19 % (12-44); MEAN CORPUSCULAR HEMOGLOBIN 31 pg (25-34); MEAN CORPUSCULAR HGB CONC 34 g/dL (32-36); MEAN CORPUSCULAR VOLUME 91 fL (80-99); MEAN PLATELET VOLUME 12.6 fL (9.0-12.2); MONOCYTES # (AUTO) 0.5 10^3/uL (0.0-1.0); MONOCYTES % (AUTO) 6 % (0-12); NEUTROPHILS % (AUTO) 75 % (42-75); PLATELET COUNT 172 10^3/uL (130-400)
[2023-01-03 11:07] LABS: ALBUMIN 3.8 GM/DL (3.2-4.5); BILIRUBIN,TOTAL 0.3 MG/DL (0.1-1.0); CREATININE SERUM 0.54 MG/DL (0.60-1.30); POTASSIUM 3.4 MMOL/L (3.6-5.0); TOTAL PROTEIN 7.3 GM/DL (6.4-8.2)
== END 2023-01-11 | disposition home or self-care (01) ==
LOC: ONC 09:10
PROVIDERS: ATTEND Internal Medicine Hematology & Oncology
DX: O28.1 Abnormal biochemical finding on antenatal screening of mother (principal); Z3A.21 21 weeks gestation of pregnancy
CPT/HCPCS: 80053; 85025; 99204

== ENCOUNTER → 2023-01-08 | Outpatient (CLI) | payer MEDICAID ==
--- NOTE | 2023-01-08 15:26 | Diagnostic Imaging Report ---
INDICATION: survey. TECHNIQUE: Multiple real-time grayscale images were obtained over the gravid uterus. COMPARISON: None FINDINGS: There is a single live fetus in a cephalic presentation. heart rate was recorded 138 bpm. Placenta is anterior. No previa is identified. Amniotic fluid index is 15.3 cm. Cervical length is 3.2 cm. The kidneys, bladder and stomach are unremarkable. brain unremarkable. There is a four-chamber heart. There is a three-vessel cord with normal insertion. spine is unremarkable. Biometrical measurements are as follows: Biparietal 5.09 cm, age 21 weeks 3 days. Head circumference 19.53 cm, age 21 weeks 6 days. Abdominal circumference 17.63 cm, age 22 weeks 4 days. Femur length 3.68 cm, age 21 weeks 5 days. Sonographic estimate age: 22 weeks 0 days. Sonographic estimated date of delivery: 05/14/2023. Estimated Weight: 475 gm (+/- 69 gm). LMP percentile: 72%. heart rate: 138 beats per minute. number: 1 of 1. IMPRESSION: Single live IUP 22 weeks 0 days gestational age. Estimated date of confinement sonographically is 05/14/2023. Dictated by: Dictated on workstation # [id number]
== END ==
LOC: RAD 13:49
PROVIDERS: ATTEND Obstetrics & Gynecology
DX: Z36.86 Encounter for antenatal screening for cervical length (principal); Z3A.22 22 weeks gestation of pregnancy
CPT/HCPCS: 76805